=== PATIENT | male | born 1950 | race Caucasian/White ===

== ENCOUNTER 2020-06-25 12:50 | Outpatient (REF) | payer OTHER, SELFPAY ==
--- NOTE | 2020-06-25 16:22 | MHC.AU.P13 ---
Adult Audiological Evaluation Date of Visit: 06/25/20 Reason for Appointment: Audiological evaluation due to decreased hearing. Mr. Martínez reports difficulty hearing in most situations. He notes that he frequently asks for repetition. He feels his left ear may be worse than the right. Does patient feel they have a hearing loss?: Yes If Yes, Which Ear?: Both Ears When Was Hearing Difficulty First Noticed?: 5 years ago Has hearing been tested previously?: No Hearing Handicap Inventory: HHIE SCORE: 30 Based on HHIE score, patient has: Severe perceived hearing handicap Ear History: Bothersome Tinnitus/Ringing/Noises in Ears: Both ears, intermittent Blocked/Full Sensation in Ear(s): Both Ears Medical History: Medical History: Dizziness or Unsteadiness, Headache, Tobacco Use Otoscopy: Right Ear: Unremarkable Left Ear: Unremarkable Tympanometry: Right Ear: Could Not Obtain Seal Left Ear: Normal Middle Ear System (Type A) Hearing Evaluation: Transducer(s) Used: Insert Earphones, Bone Conduction Method: Conventional Audiometry Stimuli Used: Pure Tones Right Ear: Description of Hearing: Moderate to severe sensorineural hearing loss from 250-8000 Hz. Left Ear: Description of Hearing: Moderately severe to profound sensorineural hearing loss from 250-8000 Hz. Speech Recognition Threshold (SRT): Method Used: Monitored Live Voice Stimuli Used: Spondee Words Right Ear: 60 dBHL Left Ear: 65 dBHL Word Discrimination: Method: Recorded Lists Word Lists Used: NU-6 Right Ear: 84% at 90 dBHL Left Ear: 76% at 90 dBHL Recommendations: Recommendations: Audiological re-evaluation in one year. Trial with amplification is recommended. Medical clearance from a physician is required before fitting. Hearing Aid Fitting will be scheduled when all materials arrive. Diagnosis: Primary Diagnosis: H90.3 Bilateral Sensorineural Hearing Loss Services Performed: Services Performed: Comprehensive Audiological Evaluation (CPT 18576) Tympanometry (CPT 76547) Signature: Provider: Giles Arthur, CCC-A
--- NOTE | 2020-06-25 16:23 | MHC.AU.P13 ---
Hearing Aid Evaluation- Binaural Date of Visit: 06/25/20 Description of Hearing: Moderate to severe sensorineural hearing loss in the right ear. Moderately severe to profound sensorineural hearing loss in the left ear. Summary: Mr. Martínez reports that he has significant difficulties hearing in most situations. 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 He would benefit from rechargeable hearing aids as he wouldn't be able to change a battery independently. He is interested in ITE style aids. Hearing Instrument Selection: Right Ear: Software Support Engineer: Robin Model: Robin Virgil 1600 ITE-R Battery Size: Rechargeable Color: [place] Left Ear: Software Support Engineer: Phonak Model: Robin Virgil 1600 ITE-R Battery Size: Rechargeable Color: [place] Recommendations: Medical clearance for hearing aid use is being requested from Mr. Martínez's PCP. Once received, hearing aids will be ordered. Earmold impressions are in the hold drawer. Will call to scheduled EPPERSON Fitting once all materials are received. Diagnosis Code(s): Primary Diagnosis: H90.3 Bilateral Sensorineural Hearing Loss Signature: Provider: Giles Arthur, CCC-A
--- NOTE | 2020-06-25 16:29 | MHC.AU.MED ---
Medical Clearance for Hearing Instrumentation Date: 06/25/20 Patient Name: Gustavo Martínez Date of : 1950 Dear , We have seen your patient on 06/25/20 and have determined that they are a candidate for amplification (See accompanying report). Specifically, they would benefit from: Hearing aid use in both ears There is a statute that addresses Medical Evaluation Requirements prior to fitting a patient with a hearing aid. According to [place] statute 265 CMR:6.03(1), (a) General. Except as provided in 265 CMR 6.03(1)(b), a special investigator shall not sell a hearing aid unless the prospective user has presented to the special investigator a written statement signed by a licensed physician that states that the patient's hearing loss has been medically evaluated and the patient may be considered a candidate for a hearing aid. The medical evaluation must have taken place within the preceding six months. Please note: Due to the [place] Statute referenced above, we cannot accept a signature other than that of a licensed physician. CORPORATE LAW SPECIALIST and PA signatures cannot be accepted. I am in agreement with the above recommendation. There is no medical contraindication for hearing instrumentation. Physician Signature Date Physician Name (Printed)
== END 2020-06-25 12:51 | disposition home or self-care (01) ==
LOC: HO.SH 12:50
PROVIDERS: PCP Nurse Practitioner; Referring Provider Nurse Practitioner; Visit Provider Nurse Practitioner
DX: H90.3 Sensorineural hearing loss, bilateral (principal)
CPT/HCPCS: 92557; 92567; 92591; V5264; V5275

== ENCOUNTER 2020-08-04 12:22 | Outpatient (REF) | payer MEDICARE, SELFPAY | END 2020-08-04 12:23 | disposition home or self-care (01) | LOC: HO.HAP 12:22 | PROVIDERS: Visit Provider Nurse Practitioner | DX: Z46.1 Encounter for fitting and adjustment of hearing aid (principal); H90.3 Sensorineural hearing loss, bilateral | CPT/HCPCS: V5011; V5020; V5160; V5260 ==

== ENCOUNTER 2020-08-18 12:25 | Outpatient (REF) | payer MEDICARE, SELFPAY | END 2020-08-18 12:26 | disposition home or self-care (01) | LOC: HO.HAP 12:25 | PROVIDERS: Visit Provider Nurse Practitioner | DX: Z13.89 Encounter for screening for other disorder (principal) ==

== ENCOUNTER 2021-08-24 13:36 | Inpatient (IN) | payer MEDICARE, SELFPAY ==
--- NOTE | ~2021-08-24 | XR_ITS ---
EXAMINATION: XR CHEST CLINICAL INFORMATION: Cough and fevers. COMPARISON: None TECHNIQUE: Frontal view of the chest was obtained. FINDINGS: There is moderate dextroscoliosis. Slightly hyperexpanded right lung is noted. There is dense right apical opacity question pleural scarring. There is patchy reticular linear opacities in both lungs slightly greater in the left midlung question developing infiltrates. There is no large consolidation or pleural effusion. Heart size and perivascular is normal. There is a hardware in the lower lumbar spine. XR/XR chest 1V IMPRESSION: Radicular patchy opacities in both lungs slightly greater in the left midlung region suspicious for developing infiltrates. There is moderate right apical opacity likely apical scarring with underlying atelectasis. The right lung is hypoexpanded.
--- NOTE | ~2021-08-24 | CT_ITS ---
EXAMINATION: CT HEAD WITHOUT CONTRAST CLINICAL INFORMATION: Covid positive. AMS. COMPARISON: None TECHNIQUE: Contiguous axial imaging was performed from the skull base to vertex without intravenous administration of contrast. This CT examination was performed using dose optimization techniques as appropriate, variously including the following: *Automated exposure control *Adjustment of mA and/or kV according to patient size (this includes techniques or standardized protocols for targeted exams where dose is matched to indication/reason for exam; i.e. extremities or head) *Use of iterative reconstruction technique DLP: 695 mGy-cm FINDINGS: There is no evidence of acute intracranial hemorrhage or territorial infarction. No abnormal mass effect or midline shift is seen. Walker to white matter differentiation is well preserved. No extra-axial fluid collections are identified. The lateral ventricles are symmetrical in size but enlarged. There is diffuse periventricular hypodensity in both cerebral hemispheres without mass effect. The osseous structures and soft tissues are normal. The mastoid air cells and visualized portions of the paranasal sinuses are well aerated. CT/CT head/brain wo con IMPRESSION: No acute intracranial process seen. Age-related cerebral volume loss with chronic small vessel ischemic changes.
[2021-08-24 14:20] VITALS: BP 116/89; PULSE 90; RESP 20; TEMP 38.2; O2SAT 98; BMI 22.9
--- NOTE | 2021-08-24 14:20 | ECG_ITS ---
Test Reason : respitory distress Blood Pressure : / mmHG Vent. Rate : 094 BPM Atrial Rate : 094 BPM P-R Int : 192 ms QRS Dur : 144 ms QT Int : 386 ms P-R-T Axes : 059 015 099 degrees QTc Int : 482 ms Normal sinus rhythm Left bundle branch block Abnormal ECG No previous ECGs available Referred By: Alexandrea Mejia Electronically Signed By:Florin Roman
--- NOTE | 2021-08-24 14:23 | ED.WEAKNESS ---
HPI - Weakness General Chief complaint: Altered Mental Status Stated complaint: AMS/FTT/new onset weakness Time Seen by Provider: 08/24/21 14:16 Source: patient and EMS Mode of arrival: EMS Limitations: altered mental status (slightly confused) History of Present Illness HPI Narrative: Jose Luis x 3 per his reports confused at home and incontinent at home which is not his baseline - unknown when last well was EMS initially tried to call for high risk refusal but then noted patient was confused which is not his baseline MD Complaint: generalized weakness (cough) and lack of energy Onset (ago): day(s) (2) Duration: constant Location: generalized Migration: none Severity: moderate Quality: dull Relieving factors: none Exacerbating factors: exertion Context: other (very hard to get history from, refused transport initially but confused, febrile + cough, possible COVID exposure) Associated symptoms: fever/chills and loss of appetite Related Data Home Medications Medication Instructions Recorded Confirmed albuterol sulfate 2.5 mg INHALATION QID PRN 08/24/21 albuterol sulfate 90 mcg/actuation 90 mcg INHALATION Q4H 08/24/21 aerosol inhaler aspirin 81 mg tablet,delayed 1 tab PO DAILY 08/24/21 release atorvastatin 80 mg tablet 1 tab PO DAILY 08/24/21 clonazepam 0.5 mg tablet 1 tab PO TID PRN 08/24/21 famotidine 40 mg tablet 1 tab PO DAILY 08/24/21 finasteride 5 mg tablet 1 tab PO DAILY 08/24/21 fluticasone fur. 100 mcg-umeclid 1 puff INHALATION DAILY 08/24/21 62.5 mcg-vilant 25 mcg inhalat.powder (Trelegy Ellipta) folic acid 1 mg tablet 1 tab PO DAILY 08/24/21 multivitamin 1 tab PO DAILY 08/24/21 ondansetron HCl 4 mg tablet 1 tab PO Q8H PRN 08/24/21 oxycodone 10 mg tablet,crush mg PO BEDTIME 08/24/21 resistant,extended release 12 hr (OxyContin) oxycodone 40 mg tablet,crush 1 tab PO BID 08/24/21 resistant,extended release 12 hr (OxyContin) quetiapine 100 mg tablet 1 tab PO BEDTIME 08/24/21 sennosides 8.6 mg-docusate sodium PO 08/24/21 50 mg tablet (Stimulant Laxative Plus) sertraline 100 mg tablet 1 tab PO DAILY 08/24/21 Allergies Allergy/AdvReac Type Severity Reaction Status Date / Time hydromorphone [From Dilaudid] Allergy Intermediate hallucinati Verified 08/24/21 14:18 on Review of Systems Review of Systems: Constitutional : No Fever, pos Chills, pos malaise ENT/Mouth : No sore throat, No Rhinorrhea, No Swallowing Difficulty Eyes: No Eye Pain, No Swelling, No Redness Cardiovascular : No Chest Pain, positive SOB, No Orthopnea, noEdema Respiratory : pos Cough, No Sputum, No Wheezing, positive dyspnea Gastrointestinal : No Nausea, No Vomiting, No Diarrhea, No abdominal Pain, No Hematochezia, No Melena Genitourinary : No Dysuria, No Urinary Frequency, No Hematuria Musculoskeletal : No joint pain, No Myalgias Skin : No Skin Lesions, No rash Neuro : pos Weakness, No Numbness, No Dizziness, No Headache Psych : No Anxiety/Panic, No Depression Heme/Lymph: No Bruising, No Lymphadenopathy Endocrine : No Polyuria, No Polydipsia All other systems reviewed and are negative [facility] Past Medical History Medical History (Updated 08/24/21 @ 18:00 by Sherrell Torres MD) Arthritis Bronchiectasis COPD (chronic obstructive pulmonary disease) Coronary artery disease Depression GERD (gastroesophageal reflux disease) Hypertension Left bundle branch block Pulmonary fibrosis Social History Social History Patient Tobacco Use Status: Former Tobacco user Advance Directives: No Physical Exam Vital Signs: Vital Signs: Last Vital Signs Temp 98.5 F 08/24/21 15:58 Pulse 94 08/24/21 15:58 Resp 14 08/24/21 15:58 BP 121/67 08/24/21 15:58 Pulse Ox 96 08/24/21 15:58 Oxygen Flow Rate 3 08/24/21 14:20 BMI result Body Mass Index 22.9 Appearance: Alert. Oriented X2 (knows time and person but then varies) No acute distress. Eyes: Pupils equal, round and reactive to light. ENT: Pharynx normal. Neck: Normal inspection. Neck supple. CVS: Normal heart rate and rhythm. Pulses normal. Respiratory: No respiratory distress. Breath sounds diminished throughout Abdomen: Soft and nontender. Skin: Skin warm and dry. Normal skin color. Normal skin turgor. Extremities: No lower extremity edema. No calf ttp Neuro: Oriented X 2 - fluctuates. No motor deficit. No sensory deficit. Course Course Course Narrative: given fevers and encephalopathy will admit for further management MDM - Weakness MDM Narrative Medical decision making narrative: 71 yo male with hx of COPD on 3L NC sent in by visiting RN for confusion and weaknesss - patient cannot tell me much and initially refused EMS transport at this time he is found to be febrile in ED at this time labs, cultures, lactic acid, COVID swab, UA and CXR given cough at this time will start on empiric Ceftriaxone. Anticipate admission at this time given fevers and confusion. Lab Data Result diagrams: 08/24/21 14:40 08/24/21 14:37 Labs: Lab Results 08/24/21 08/24/21 08/24/21 Range/Units 14:37 14:37 14:37 WBC (4.8-10.8) X10*3/uL RBC (4.60-5.80) X10*6/uL Hgb (14.0-18.0) g/dl Hct (42.0-52.0) % MCV (80.0-98.0) fL MCH (27.0-33.0) pg MCHC (31.0-36.0) g/dl RDW (11.0-16.0) % Plt Count (160-400) X10*3/uL MPV (9.4-12.4) fL Immature Gran % (Auto) (0.0-0.4) % Neut % (Auto) (45-73) % Lymph % (Auto) (20-40) % [place] % (Auto) (2-11) % Eos % (Auto) (0-4) % Baso % (Auto) (0-2) % Lymph # (Auto) (1.2-4.9) X10*3/uL [place] # (Auto) (0.1-1.2) X10*3/uL Eos # (Auto) (0.0-0.4) X10*3/uL Baso # (Auto) (0.0-0.2) X10*3/uL Abs Immat Gran (auto) (0.00-0.03) X10*3/uL Absolute Neuts (auto) (2.0-8.3) x10*3/uL Absolute Nucleated RBC (0.0-0.012) X10*3/uL Nucleated RBC % (auto) (0.0-0.2) /100WBC PT (9.9-13.0) SEC INR (0.9-1.1) APTT (24.1-38.0) SEC D-Dimer High Sensitivty NG/ML Sodium 138 (135-145) mmol/L Potassium 3.8 (3.3-5.1) mmol/L Chloride 100 (96-108) mmol/L Carbon Dioxide 32 H (22-29) mmol/L Anion Gap 10 L (12-20) BUN 14 (9-16) mg/dL Creatinine 1.08 (0.5-1.4) mg/dL Estim Creat Clear Calc TNP Estimated GFR > 60 Random Glucose 129 H (60-115) mg/dL Lactic Acid 0.8 (0.5-2.0) mmol/L Calcium 8.8 (8.4-10.2) mg/dL Magnesium 2.0 (1.6-2.6) mg/dL Ferritin 160 (20-250) ng/mL Total Bilirubin 0.6 (0.0-1.0) mg/dL Direct Bilirubin 0.3 (0.0-0.5) mg/dL AST 23 (5-37) U/L ALT 18 (0-40) U/L Alkaline Phosphatase 58 (39-117) U/L Lactate Dehydrogenase 269 (118-273) U/L Total Creatine Kinase 100 (38-174) U/L Troponin I High Sens 14.9 (<3.5-35.0) ng/L C-Reactive Protein 8.26 H (< or = 0.50) mg/dL Total Protein 6.3 L (6.5-8.0) g/dL Albumin 3.3 L (3.5-5.0) g/dL Procalcitonin ng/mL COVID-19 ([facility]) (Negative) COVID-19 Clin Com 08/24/21 08/24/21 08/24/21 Range/Units 14:37 14:38 14:39 WBC (4.8-10.8) X10*3/uL RBC (4.60-5.80) X10*6/uL Hgb (14.0-18.0) g/dl Hct (42.0-52.0) % MCV (80.0-98.0) fL MCH (27.0-33.0) pg MCHC (31.0-36.0) g/dl RDW (11.0-16.0) % Plt Count (160-400) X10*3/uL MPV (9.4-12.4) fL Immature Gran % (Auto) (0.0-0.4) % Neut % (Auto) (45-73) % Lymph % (Auto) (20-40) % [place] % (Auto) (2-11) % Eos % (Auto) (0-4) % Baso % (Auto) (0-2) % Lymph # (Auto) (1.2-4.9) X10*3/uL [place] # (Auto) (0.1-1.2) X10*3/uL Eos # (Auto) (0.0-0.4) X10*3/uL Baso # (Auto) (0.0-0.2) X10*3/uL Abs Immat Gran (auto) (0.00-0.03) X10*3/uL Absolute Neuts (auto) (2.0-8.3) x10*3/uL Absolute Nucleated RBC (0.0-0.012) X10*3/uL Nucleated RBC % (auto) (0.0-0.2) /100WBC PT 11.5 (9.9-13.0) SEC INR 1.0 (0.9-1.1) APTT 34.1 (24.1-38.0) SEC D-Dimer High Sensitivty 282 NG/ML Sodium (135-145) mmol/L Potassium (3.3-5.1) mmol/L Chloride (96-108) mmol/L Carbon Dioxide (22-29) mmol/L Anion Gap (12-20) BUN (9-16) mg/dL Creatinine (0.5-1.4) mg/dL Estim Creat Clear Calc Estimated GFR Random Glucose (60-115) mg/dL Lactic Acid (0.5-2.0) mmol/L Calcium (8.4-10.2) mg/dL Magnesium (1.6-2.6) mg/dL Ferritin (20-250) ng/mL Total Bilirubin (0.0-1.0) mg/dL Direct Bilirubin (0.0-0.5) mg/dL AST (5-37) U/L ALT (0-40) U/L Alkaline Phosphatase (39-117) U/L Lactate Dehydrogenase (118-273) U/L Total Creatine Kinase (38-174) U/L Troponin I High Sens (<3.5-35.0) ng/L C-Reactive Protein (< or = 0.50) mg/dL Total Protein (6.5-8.0) g/dL Albumin (3.5-5.0) g/dL Procalcitonin 0.12 ng/mL COVID-19 ([facility]) Positive A (Negative) COVID-19 Clin Com See Note 08/24/21 Range/Units 14:40 WBC 6.2 (4.8-10.8) X10*3/uL RBC 3.89 L (4.60-5.80) X10*6/uL Hgb 11.3 L (14.0-18.0) g/dl Hct 35.9 L (42.0-52.0) % MCV 92.3 (80.0-98.0) fL MCH 29.0 (27.0-33.0) pg MCHC 31.5 (31.0-36.0) g/dl RDW 17.0 H (11.0-16.0) % Plt Count 190 (160-400) X10*3/uL MPV 10.0 (9.4-12.4) fL Immature Gran % (Auto) 0.3 (0.0-0.4) % Neut % (Auto) 85.3 H (45-73) % Lymph % (Auto) 3.9 L (20-40) % [place] % (Auto) 9.8 (2-11) % Eos % (Auto) 0.5 (0-4) % Baso % (Auto) 0.2 (0-2) % Lymph # (Auto) 0.2 L (1.2-4.9) X10*3/uL [place] # (Auto) 0.6 (0.1-1.2) X10*3/uL Eos # (Auto) 0.0 (0.0-0.4) X10*3/uL Baso # (Auto) 0.0 (0.0-0.2) X10*3/uL Abs Immat Gran (auto) 0.02 (0.00-0.03) X10*3/uL Absolute Neuts (auto) 5.3 (2.0-8.3) x10*3/uL Absolute Nucleated RBC 0.000 (0.0-0.012) X10*3/uL Nucleated RBC % (auto) 0.0 (0.0-0.2) /100WBC PT (9.9-13.0) SEC INR (0.9-1.1) APTT (24.1-38.0) SEC D-Dimer High Sensitivty NG/ML Sodium (135-145) mmol/L Potassium (3.3-5.1) mmol/L Chloride (96-108) mmol/L Carbon Dioxide (22-29) mmol/L Anion Gap (12-20) BUN (9-16) mg/dL Creatinine (0.5-1.4) mg/dL Estim Creat Clear Calc Estimated GFR Random Glucose (60-115) mg/dL Lactic Acid (0.5-2.0) mmol/L Calcium (8.4-10.2) mg/dL Magnesium (1.6-2.6) mg/dL Ferritin (20-250) ng/mL Total Bilirubin (0.0-1.0) mg/dL Direct Bilirubin (0.0-0.5) mg/dL AST (5-37) U/L ALT (0-40) U/L Alkaline Phosphatase (39-117) U/L Lactate Dehydrogenase (118-273) U/L Total Creatine Kinase (38-174) U/L Troponin I High Sens (<3.5-35.0) ng/L C-Reactive Protein (< or = 0.50) mg/dL Total Protein (6.5-8.0) g/dL Albumin (3.5-5.0) g/dL Procalcitonin ng/mL COVID-19 ([facility]) (Negative) COVID-19 Clin Com ECG Data Attestation: I personally reviewed and interpreted this ECG as follows: ECG interpretation date: 08/24/21 ECG interpretation time: 14:49 Interpretation: Rate: 94 Rhythm: NSR [place]: left Normal P waves. Normal ABRAHAM. LBBB ST T wave : tall T waves anterior leads but no SYEDA qTC: normal prior studies: none, sig artifact noted The study has been interpreted contemporaneously by me. . Discharge Plan Discharge Clinical Impression: COVID-19, Encephalopathy acute, Pneumonia due to 2019-nCoV Fever Qualifiers: Fever type: unspecified Qualified Code(s): R50.9 - Fever, unspecified Patient Disposition: Admitted As Inpatient
[2021-08-24 14:41] VITALS: BP 116/68; PULSE 101; RESP 20; TEMP 37.7; O2SAT 96
[2021-08-24 14:50] LABS: MANUAL DIFF FLAG NO
[2021-08-24 14:51] LABS: Basophils Percent Auto 0.2 % (0-2); Eosinophils Percent Auto 0.5 % (0-4); Hematocrit 35.9 % (42.0-52.0); Hemoglobin 11.3 g/dl (14.0-18.0); Imm Gran Abs Auto 0.02 X10*3/uL (0.00-0.03); Imm Gran Pct Auto 0.3 % (0.0-0.4); Lymphocytes Absolute Auto 0.2 X10*3/uL (1.2-4.9); Lymphocytes Percent Auto 3.9 % (20-40); Mean Corpuscular HGB Conc 31.5 g/dl (31.0-36.0); Mean Corpuscular Volume 92.3 fL (80.0-98.0); Monocytes Absolute Auto 0.6 X10*3/uL (0.1-1.2); Monocytes Percent Auto 9.8 % (2-11); Neutrophils Absolute Auto 5.3 x10*3/uL (2.0-8.3); Neutrophils Percent Auto 85.3 % (45-73); Platelet Count 190 X10*3/uL (160-400); Red Blood Count 3.89 X10*6/uL (4.60-5.80); White Blood Count 6.2 X10*3/uL (4.8-10.8)
[2021-08-24 14:56] LABS: Prothrombin Time 11.5 SEC (9.9-13.0)
[2021-08-24 14:59] LABS: Partial Thromboplastin Time 34.1 SEC (24.1-38.0)
[2021-08-24 14:59] LABS: Lactic Acid 0.8 mmol/L (0.5-2.0)
[2021-08-24 15:02] LABS: COVID-19 Test Positive (Negative)
[2021-08-24 15:06] LABS: Alanine Aminotransferase 18 U/L (0-40); Albumin Level 3.3 g/dL (3.5-5.0); Alkaline Phosphatase 58 U/L (39-117); Anion Gap 10 (12-20); Aspartate Amino Transferase 23 U/L (5-37); Bilirubin Direct 0.3 mg/dL (0.0-0.5); Bilirubin Total 0.6 mg/dL (0.0-1.0); Blood Urea Nitrogen 14 mg/dL (9-16); C Reactive Protein 8.26 mg/dL (< or = 0.50); Calcium 8.8 mg/dL (8.4-10.2); Carbon Dioxide 32 mmol/L (22-29); Chloride 100 mmol/L (96-108); Estimated Glomerular Filt Rate > 60; Glucose Random 129 mg/dL (60-115); Potassium 3.8 mmol/L (3.3-5.1); Sodium 138 mmol/L (135-145); Total Protein 6.3 g/dL (6.5-8.0)
[2021-08-24 15:14] LABS: Lactate Dehydrogenase 269 U/L (118-273)
[2021-08-24] MEDS: Acetaminophen 325 MG TABLET 650 MG PO (15:16)
[2021-08-24 15:18] LABS: Troponin-I High Sensitivity 14.9 ng/L (<3.5-35.0)
[2021-08-24] MEDS: cefTRIAXone sodium 1 GM in 0.9 % Sodium Chloride 50 ML IV (15:18)
[2021-08-24] MEDS: 0.9 % Sodium Chloride 500 ML IV (15:18)
[2021-08-24 15:22] LABS: D Dimer High Sensitivity 282 NG/ML
[2021-08-24 15:25] LABS: Ferritin 160 ng/mL (20-250)
[2021-08-24 15:58] VITALS: BP 121/67; PULSE 94; RESP 14; TEMP 36.9; O2SAT 96
--- NOTE | 2021-08-24 17:21 | PM.IMHP ---
History of Present Illness Date of Service: 08/24/21 Chief Complaint: fever/confusion 71yo M with COPD, bronchiectasis, and pulmonary fibrosis, on home O2 3L via NC. He is a poor historian. History is per the ED physician as well as my telephone conversation with his VNA Yennifer, whose phone number is [phone]. The patient's HCP, his [id number] Mady, no longer wants anything to do with him, and her alternate, his brother Ladarius, has a number that does not work. Per Yennifer the patient is estranged from his family. He relates that he lives with his REED POLISHER but he actually lives alone and his REED POLISHER comes 5 days a week. He has a chronic purulent cough and has been on steroids since February, with a gradual taper as per his progressive care unit registered nurse, Dr Mariajose Chowdhury, at [facility]. He was exposed to Covid-19 through his REED POLISHER, who give him a ride, 6 days ago. His VNA called 911 as the patient was confused and incontinent of urine, which is not his baseline. He initially refused transport and has a history of trying to sign out AMA from the hospital. He tells me that he has been coughing and endorses dyspnea and wheeze. He states this has been going on for 8 days, but as note above, he has a chronic cough. He is oriented to self and place but not to date. He does relate that he had 2 doses of a Covid vaccine plus a booster of the same. In the ED, he was noted to have fever to 100.7 and disoriented. CXR showed patchy R>L mid-lung infiltrates. He was given 1 dose of IV ceftriaxone. CT head is pending. Covid-19 PRIYA positive. Review of Systems Review of Systems: Yes all other systems are reviewed and are negative [facility] Medical History (Updated 08/24/21 @ 18:00 by Sherrell Torres MD) Arthritis Bronchiectasis COPD (chronic obstructive pulmonary disease) Coronary artery disease Depression GERD (gastroesophageal reflux disease) Hypertension Left bundle branch block Pulmonary fibrosis Pertinent family history: CAD, breast CA, prostate CA Social History Patient Tobacco Use Status: Former Tobacco user Advance Directives: No Narrative: lives alone ex-smoker Meds Allergies Allergy/AdvReac Type Severity Reaction Status Date / Time hydromorphone [From Dilaudid] Allergy Intermediate hallucinati Verified 08/24/21 14:18 on Active Medications: Current Medications Acetaminophen (Acetaminophen 325 Mg Tablet) 650 mg PO Q6H PRN PRN Reason: Pain, Mild (Pain Scale 1-3) Albuterol Sulfate (Albuterol Sulfate 90 Mcg 8 Gm Inhaler) 4 puff INHALE Q2H PRN PRN Reason: shortness of breath/wheeze Enoxaparin Sodium (Enoxaparin Sodium 40 Mg/0.4 Ml Syringe) 40 mg SUBCUT Q24H STELLA Fluticasone/Vilanterol (Fluticasone/Vilanterol 100/25 Blst.W.Dev) 1 puff INHALE RDAILY [facility] Doxycycline Hyclate 100 mg/ (Sodium Chloride) 250 mls @ 166.67 mls/hr IV Q12H [facility] Methylprednisolone Sodium Succinate (Methylprednisolone Sod Succ 40 Mg/Ml Vial) 40 mg IVPUSH Q12H [facility]LL[facility] Ondansetron HCl (Ondansetron Hcl 4 Mg/2 Ml Vial) 4 mg IVPUSH Q8H PRN PRN Reason: Nausea and Vomiting Pharmacy Consult (Consult Rx Perform Med Rec) 1 each MISCELLANE ONCE PRN PRN Reason: Consult order Pharmacy Consult (Consult Rx Perform Med Rec) 1 each MISCELLANE ONCE STA Stop: 08/24/21 16:47 Sodium Chloride (0.9 % Sodium Chloride Flush 3 Ml Syringe) 3 ml IVFLUSH QSHIFT [facility] Tiotropium [place] (Tiotropium [place] 18 Mcg Cap.W.Dev) 1 puff INHALE RDAILY [facility] Home Medications Medication Instructions Recorded Confirmed Last Taken Type albuterol sulfate 2.5 mg INHALATION QID PRN 08/24/21 08/24/21 Unknown History albuterol sulfate 90 mcg/actuation 90 mcg INHALATION Q4H 08/24/21 08/24/21 Unknown History aerosol inhaler aspirin 81 mg tablet,delayed 1 tab PO DAILY 08/24/21 08/24/21 Unknown History release atorvastatin 80 mg tablet 1 tab PO DAILY 08/24/21 08/24/21 Unknown History cholecalciferol (vitamin D3) 25 25 mcg PO DAILY 08/24/21 08/24/21 Unknown History mcg (1,000 unit) tablet clonazepam 0.5 mg tablet 1 tab PO TID PRN 08/24/21 08/24/21 Unknown History famotidine 40 mg tablet 1 tab PO DAILY 08/24/21 08/24/21 Unknown History finasteride 5 mg tablet 1 tab PO DAILY 08/24/21 08/24/21 Unknown History fluticasone fur. 100 mcg-umeclid 1 puff INHALATION DAILY 08/24/21 08/24/21 Unknown History 62.5 mcg-vilant 25 mcg inhalat.powder (Trelegy Ellipta) folic acid 1 mg tablet 1 tab PO DAILY 08/24/21 08/24/21 Unknown History multivitamin 1 tab PO DAILY 08/24/21 08/24/21 Unknown History ondansetron HCl 4 mg tablet 1 tab PO Q8H PRN 08/24/21 08/24/21 Unknown History oxycodone 10 mg tablet,crush 10 mg PO DAILY 08/24/21 08/24/21 Unknown History resistant,extended release 12 hr (OxyContin) oxycodone 40 mg tablet,crush 1 tab PO BID 08/24/21 08/24/21 Unknown History resistant,extended release 12 hr (OxyContin) prednisone 5 mg tablet 5 mg PO Q2D 08/24/21 08/24/21 Unknown History prednisone 5 mg tablet 10 mg PO Q2D 08/24/21 08/24/21 Unknown History quetiapine 100 mg tablet 1 tab PO BEDTIME 08/24/21 08/24/21 Unknown History sennosides 8.6 mg-docusate sodium 1 tab PO DAILY 08/24/21 08/24/21 Unknown History 50 mg tablet (Stimulant Laxative Plus) sertraline 100 mg tablet 1 tab PO DAILY 08/24/21 08/24/21 Unknown History trazodone 100 mg tablet 2 tab PO BEDTIME PRN 08/24/21 08/24/21 Unknown History Physical Exam Vital Signs and Narrative: Vital Signs: Last Vital Signs Temp 98.5 F 08/24/21 15:58 Pulse 94 08/24/21 15:58 Resp 14 08/24/21 15:58 BP 121/67 08/24/21 15:58 Pulse Ox 96 08/24/21 15:58 Oxygen Flow Rate 3 08/24/21 14:20 BMI result Body Mass Index 22.9 Gen: in no acute distress HEENT: sclera anicteric, moist mucus membranes Neck: supple Lungs: bilateral inspiratory crackles and expiratory wheezing Heart: regular rate and rhythm, no murmurs Abd: soft, non-tender, non-distended Ext: no edema Skin: warm/well-perfused Neuro: alert and oriented to self and place but not time, no focal findings Psych: appropriate affect Results Labs CBC and Chem 7: 08/24/21 14:40 08/24/21 14:37 Labs: Laboratory Results - last 24 hr 08/24/21 08/24/21 08/24/21 14:37 14:37 14:37 MCV MCH MCHC RDW Plt Count MPV Immature Gran % (Auto) Neut % (Auto) Lymph % (Auto) [place] % (Auto) Eos % (Auto) Baso % (Auto) Lymph # (Auto) [place] # (Auto) Eos # (Auto) Baso # (Auto) Abs Immat Gran (auto) Absolute Neuts (auto) Absolute Nucleated RBC Nucleated RBC % (auto) PT INR APTT D-Dimer High Sensitivty Anion Gap 10 L Estim Creat Clear Calc TNP Estimated GFR > 60 Random Glucose 129 H Lactic Acid 0.8 Calcium 8.8 Magnesium 2.0 Ferritin 160 Total Bilirubin 0.6 Direct Bilirubin 0.3 AST 23 ALT 18 Alkaline Phosphatase 58 Lactate Dehydrogenase 269 Total Creatine Kinase 100 Troponin I High Sens 14.9 C-Reactive Protein 8.26 H Total Protein 6.3 L Albumin 3.3 L COVID-19 (PRIYA) COVID-19 Clin Com 08/24/21 08/24/21 08/24/21 14:38 14:39 14:40 MCV 92.3 MCH 29.0 MCHC 31.5 RDW 17.0 H Plt Count 190 MPV 10.0 Immature Gran % (Auto) 0.3 Neut % (Auto) 85.3 H Lymph % (Auto) 3.9 L [place] % (Auto) 9.8 Eos % (Auto) 0.5 Baso % (Auto) 0.2 Lymph # (Auto) 0.2 L [place] # (Auto) 0.6 Eos # (Auto) 0.0 Baso # (Auto) 0.0 Abs Immat Gran (auto) 0.02 Absolute Neuts (auto) 5.3 Absolute Nucleated RBC 0.000 Nucleated RBC % (auto) 0.0 PT 11.5 INR 1.0 APTT 34.1 D-Dimer High Sensitivty 282 Anion Gap Estim Creat Clear Calc Estimated GFR Random Glucose Lactic Acid Calcium Magnesium Ferritin Total Bilirubin Direct Bilirubin AST ALT Alkaline Phosphatase Lactate Dehydrogenase Total Creatine Kinase Troponin I High Sens C-Reactive Protein Total Protein Albumin COVID-19 (PRIYA) Positive A COVID-19 Clin Com See Note Imaging Radiologist's Impressions: Impressions Chest X-Ray 08/24/21 15:05 IMPRESSION: Radicular patchy opacities in both lungs slightly greater in the left midlung region suspicious for developing infiltrates. There is moderate right apical opacity likely apical scarring with underlying atelectasis. The right lung is hypoexpanded. Assessment and Plan (1) COVID-19: Status: Acute (2) COPD exacerbation: Status: Acute 71yo M with advanced COPD and bronchiectasis and pulmonary brisosi on home O2 presenting after 8 days of cough and fever, noted to be confused, testing positive for Covid-19 but not hypoxic # breakthrough Covid-19 PNA - admit to isolation/IMC for encephalopathy + COPD exacerbation, trend inflammatory markers. given high risk of progression and that he is likely in the 1st 7 days of illness, will start remdesivir. # COPD exacerbation - IV methlyprednisolone, doxycycline, standing/prn nebs, continue home triple therapy ICS/LABA/LAMA # encephalopathy - likely due to above; monitor mental status as these conditions are treated # chronic hypoxic respiratory failure - baseline 3L O2 via NC, goal SaO2 88-92%. per his VNA he is usually around 90% at rest, 85% with exertion # CAD - continue ASA + statin # chronic pain - continue oxycodone # depression/mood - continue quetiapine, clonazepam, sertraline # prostatism - continue finasteride # VTE ppx - LMWH # code - Full Quality Stroke Does the patient have a stroke diagnosis?: No VTE Prior VTE?: No VTE Risk Level:: Medical - moderate - high VTE Device Contraindication: N/A - Device Ordered VTE Drug Contraindication: N/A - Med Ordered
[2021-08-24 17:25] LABS: Procalcitonin 0.12 ng/mL
--- NOTE | 2021-08-24 18:15 | PHA.MEDREC ---
Pharmacy Consult ? Medication Reconciliation Pharmacy has completed the medication reconciliation. Patient doesnt know med used list provided by visiting nurses
[2021-08-24] MEDS: Enoxaparin Sodium 40 MG/0.4 ML SYRINGE SUBCUT (18:25)
[2021-08-24] MEDS: methylPREDNISolone Sod Succ 40 MG/ML VIAL IVPUSH (18:25)
[2021-08-24] MEDS: Doxycycline Hyclate 100 MG in 0.9 % Sodium Chloride 250 ML 166.67 MG IV (18:26)
[2021-08-24] MEDS: Remdesivir 200 MG in 0.9 % Sodium Chloride 210 ML 105 MG IV (20:01)
[2021-08-24 21:31] VITALS: BP 116/76; PULSE 81; RESP 14; O2SAT 96
[2021-08-24] MEDS: QUEtiapine Fumarate 100 MG TABLET PO (21:34)
[2021-08-24] MEDS: oxyCODONE HCl ER 40 MG TAB.ER.12H PO (21:34)
[2021-08-24 22:58] LABS: Appearance Urine CLEAR; Color Urine YELLOW; Glucose Urine UA NEG (NEG); Leukocyte Esterase Urine NEG (NEG); Nitrite Urine NEG (NEG); PH 5.5 (5.0-8.0); Specific Gravity - Urine <= 1.005 (1.005-1.025); Urine Blood NEG (NEG); Urine Ketones NEG (NEG); Urine Protein NEG (NEG-TRACE)
[2021-08-24 23:57] VITALS: BP 119/71; PULSE 75; RESP 14; TEMP 36.6; O2SAT 100
[2021-08-25] MEDS: 0.9 % Sodium Chloride Flush 3 ML SYRINGE IVFLUSH ×2 (00:54→18:07)
[2021-08-25 02:19] VITALS: BP 145/74; PULSE 87; RESP 16; TEMP 36.5; O2SAT 97
[2021-08-25 04:09] VITALS: BP 122/70; PULSE 74; RESP 19; TEMP 36.6; O2SAT 97
[2021-08-25] MEDS: methylPREDNISolone Sod Succ 40 MG/ML VIAL IVPUSH ×2 (06:50→18:06)
[2021-08-25] MEDS: Doxycycline Hyclate 100 MG in 0.9 % Sodium Chloride 250 ML 166.67 MG IV ×2 (06:50→18:07)
[2021-08-25 07:04] VITALS: BP 143/86; PULSE 76; RESP 13; TEMP 36.6; O2SAT 99
[2021-08-25 07:16] LABS: Hematocrit 34.7 % (42.0-52.0); Hemoglobin 10.9 g/dl (14.0-18.0); Mean Corpuscular HGB Conc 31.4 g/dl (31.0-36.0); Mean Corpuscular Hemoglobin 29.2 pg (27.0-33.0); Mean Platelet Volume 10.5 fL (9.4-12.4); Platelet Count 203 X10*3/uL (160-400); Red Blood Count 3.73 X10*6/uL (4.60-5.80); Red Cell Distribution Width 16.5 % (11.0-16.0); White Blood Count 3.4 X10*3/uL (4.8-10.8)
[2021-08-25 07:40] LABS: Alanine Aminotransferase 17 U/L (0-40); Albumin Level 3.1 g/dL (3.5-5.0); Alkaline Phosphatase 51 U/L (39-117); Anion Gap 11 (12-20); Aspartate Amino Transferase 23 U/L (5-37); Bilirubin Total 0.4 mg/dL (0.0-1.0); Blood Urea Nitrogen 14 mg/dL (9-16); Calcium 8.4 mg/dL (8.4-10.2); Carbon Dioxide 32 mmol/L (22-29); Chloride 99 mmol/L (96-108); Creatinine Clr Calc Pharmacy 82.5; Estimated Glomerular Filt Rate > 60; Glucose Random 124 mg/dL (60-115); Potassium 4.4 mmol/L (3.3-5.1); Sodium 138 mmol/L (135-145)
[2021-08-25] MEDS: Aspirin Enteric Coated 81 MG TABLET.DR PO (07:48)
[2021-08-25] MEDS: Sennosides/Docusate Sodium TABLET 1 TAB PO (07:48)
[2021-08-25] MEDS: Cholecalciferol (Vitamin D3) 25 MCG TABLET PO (07:49)
[2021-08-25] MEDS: Sertraline HCL 100 MG TABLET PO (07:49)
[2021-08-25] MEDS: Folic Acid 1 MG TABLET PO (07:49)
[2021-08-25] MEDS: oxyCODONE HCl ER 40 MG TAB.ER.12H PO ×2 (07:49→21:35)
[2021-08-25] MEDS: Famotidine 20 MG TABLET 40 MG PO (07:49)
[2021-08-25] MEDS: oxyCODONE HCl ER 10 MG TAB.ER.12H PO (07:49)
[2021-08-25] MEDS: Atorvastatin Calcium 80 MG TABLET PO (07:49)
[2021-08-25] MEDS: Multivitamin TABLET 1 TAB PO (07:50)
--- NOTE | 2021-08-25 09:07 | MHC.CM.PN ---
CM SPOKE WITH PT VIA T/C ([phone]) DUE TO PTS COVID POSITIVE STATUS PT REPORTS HE DOES LIVE ALONE HOWEVER HE IS NEVER BY HIMSELF OTHER THAN WHEN HE GOES TO BED. HE REPORTS HE HAS A FILLER IN THAT COMES IN 5 DAYS A WEEK, A VISITING NURSE TWICE DAILY FOR MEDS, SEVERAL FRIENDS THAT COME BY, AND IS ALSO VISITED BY OFFICER JIGNA GALLAGHER FROM [facility] ABOUT EVERY OTHER DAY. PT DOES NOT KNOW THE NAME OF HIS PCP BUT REPORTS HE GOES TO [facility] IN [place]. PT HAS A HCP ON FILE. IMM DELIVERED VIA T/C, PT IS AWARE THE ORIGINAL WILL BE MAILED TO HIS HOME, AND A COPY WAS SENT TO [facility]. CURRENT DC PLAN IS HOME WITH RESUMPTION OF FILLER IN SERVICES AND [facility] FOR MEDICATION ADMINISTRATION AND MENTAL HEALTH SERVICES PT WILL REQUIRE BLS TRANSPORT AT [place].
--- NOTE | 2021-08-25 13:30 | HO.PM.IMPN ---
Subjective Subjective Date of Service: 08/25/21 Interval History: Dyspnea + wheeze improved Review of Systems Review of Systems: Yes all other systems are reviewed and are negative Physical Exam Vital Signs: Vital Signs: Last Vital Signs Temp 97.8 F 08/25/21 07:04 Pulse 76 08/25/21 07:04 Resp 13 08/25/21 07:04 BP 143/86 H 08/25/21 07:04 Pulse Ox 99 08/25/21 07:04 Oxygen Flow Rate 3 08/24/21 14:20 BMI result Body Mass Index 22.9 Gen: in no acute distress HEENT: sclera anicteric, moist mucus membranes Neck: supple Lungs: bilateral inspiratory crackles and expiratory wheezing Heart: regular rate and rhythm, no murmurs Abd: soft, non-tender, non-distended Ext: no edema Skin: warm/well-perfused Neuro: fully oriented, no focal findings Psych: appropriate affect Objective Data Active Medications Acetaminophen (Acetaminophen 325 Mg Tablet) 650 mg PO Q6H PRN PRN Reason: Pain, Mild (Pain Scale 1-3) Albuterol Sulfate (Albuterol Sulfate 90 Mcg 8 Gm Inhaler) 4 puff INHALE Q2H PRN PRN Reason: shortness of breath/wheeze Aspirin (Aspirin Enteric Coated 81 Mg Tablet.) 81 mg PO DAILY [facility] Last Admin: 08/25/21 07:48 Dose: 81 mg Documented by: CHING Atorvastatin Calcium (Atorvastatin Calcium 80 Mg Tablet) 80 mg PO DAILY [facility] Last Admin: 08/25/21 07:49 Dose: 80 mg Documented by: CHING Clonazepam (Clonazepam 0.5 Mg Tablet) 0.5 mg PO TID PRN PRN Reason: Anxiety Enoxaparin Sodium (Enoxaparin Sodium 40 Mg/0.4 Ml Syringe) 40 mg SUBCUT Q24H [facility] Last Admin: 08/24/21 18:25 Dose: 40 mg Documented by: GUSTABO Famotidine (Famotidine 20 Mg Tablet) 40 mg PO DAILY [facility] Last Admin: 08/25/21 07:49 Dose: 40 mg Documented by: CHING Finasteride (Finasteride 5 Mg Tablet) 5 mg PO DAILY [facility] Last Admin: 08/25/21 07:50 Dose: Not Given Documented by: CHING Non-Admin Reason: Med Not Available Fluticasone/Vilanterol (Fluticasone/Vilanterol 100/25 Blst.W.Dev) 1 puff INHALE RDAILY [facility] Last Admin: 08/25/21 07:50 Dose: Not Given Documented by: CHING Non-Admin Reason: Med Not Available Folic Acid (Folic Acid 1 Mg Tablet) 1 mg PO DAILY [facility] Last Admin: 08/25/21 07:49 Dose: 1 mg Documented by: CHING Doxycycline Hyclate 100 mg/ (Sodium Chloride) 250 mls @ 166.67 mls/hr IV Q12H [facility] Last Admin: 08/25/21 06:50 Dose: 166.67 mls/hr Documented by: NATALY Remdesivir 100 mg/ Sodium (Chloride) 230 mls @ 115 mls/hr IV Q24H [facility] Stop: 08/26/21 20:59 Methylprednisolone Sodium Succinate (Methylprednisolone Sod Succ 40 Mg/Ml Vial) 40 mg IVPUSH Q12H [facility] Last Admin: 08/25/21 06:50 Dose: 40 mg Documented by: NATALY Multivitamins/Vitamin C (Multivitamin Tablet) 1 tab PO DAILY [facility] Last Admin: 08/25/21 07:50 Dose: 1 tab Documented by: CHING Ondansetron HCl (Ondansetron Hcl 4 Mg/2 Ml Vial) 4 mg IVPUSH Q8H PRN PRN Reason: Nausea and Vomiting Oxycodone HCl (Oxycodone Hcl Er 10 Mg Tab.Er.12h) 10 mg PO DAILY [facility] Last Admin: 08/25/21 07:49 Dose: 10 mg Documented by: CHING Oxycodone HCl (Oxycodone Hcl Er 40 Mg Tab.Er.12h) 40 mg PO BID [facility] Last Admin: 08/25/21 07:49 Dose: 40 mg Documented by: CHING Pharmacy Consult (Consult Rx Perform Med Rec) 1 each MISCELLANE ONCE PRN PRN Reason: Consult order Quetiapine Fumarate (Quetiapine Fumarate 100 Mg Tablet) 100 mg PO BEDTIME [facility] Last Admin: 08/24/21 21:34 Dose: 100 mg Documented by: NATALY Senna/Docusate Sodium (Sennosides/Docusate Sodium Tablet) 1 tab PO DAILY [facility] Last Admin: 08/25/21 07:48 Dose: 1 tab Documented by: CHING Sertraline HCl (Sertraline Hcl 100 Mg Tablet) 100 mg PO DAILY [facility] Last Admin: 08/25/21 07:49 Dose: 100 mg Documented by: CHING Sodium Chloride (0.9 % Sodium Chloride Flush 3 Ml Syringe) 3 ml IVFLUSH QSHIFT [facility] Last Admin: 08/25/21 07:21 Dose: Not Given Documented by: CHING Non-Admin Reason: Med Not Available Tiotropium [place] (Tiotropium [place] 18 Mcg Cap.W.Dev) 1 puff INHALE RDAILY [facility] Last Admin: 08/25/21 07:50 Dose: Not Given Documented by: CHING Non-Admin Reason: Med Not Available Trazodone HCl (Trazodone Hcl 100 Mg Tablet) 200 mg PO BEDTIME PRN PRN Reason: Insomnia Vitamin D (Cholecalciferol (Vitamin D3) 25 Mcg Tablet) 25 mcg PO DAILY [facility] Last Admin: 08/25/21 07:49 Dose: 25 mcg Documented by: CIHNG Labs CBC & Chem 7: 08/25/21 06:49 08/25/21 06:49 Labs: Laboratory Results - last 24 hr 08/24/21 08/24/21 08/24/21 14:37 14:37 14:37 MCV MCH MCHC RDW Plt Count MPV Immature Gran % (Auto) Neut % (Auto) Lymph % (Auto) [place] % (Auto) Eos % (Auto) Baso % (Auto) Lymph # (Auto) [place] # (Auto) Eos # (Auto) Baso # (Auto) Abs Immat Gran (auto) Absolute Neuts (auto) Absolute Nucleated RBC Nucleated RBC % (auto) PT INR APTT D-Dimer High Sensitivty Anion Gap 10 L Estim Creat Clear Calc TNP Estimated GFR > 60 Random Glucose 129 H Lactic Acid 0.8 Calcium 8.8 Magnesium 2.0 Ferritin 160 Total Bilirubin 0.6 Direct Bilirubin 0.3 AST 23 ALT 18 Alkaline Phosphatase 58 Lactate Dehydrogenase 269 Total Creatine Kinase 100 Troponin I High Sens 14.9 C-Reactive Protein 8.26 H Total Protein 6.3 L Albumin 3.3 L Procalcitonin Urine Color Urine Appearance Urine pH Ur Specific S [place] Urine Protein Urine Glucose (UA) Urine Ketones Urine Blood Urine Nitrite Ur Leukocyte Esterase COVID-19 (PRIYA) COVID-19 Clin Com 08/24/21 08/24/21 08/24/21 14:37 14:38 14:39 MCV MCH MCHC RDW Plt Count MPV Immature Gran % (Auto) Neut % (Auto) Lymph % (Auto) [place] % (Auto) Eos % (Auto) Baso % (Auto) Lymph # (Auto) [place] # (Auto) Eos # (Auto) Baso # (Auto) Abs Immat Gran (auto) Absolute Neuts (auto) Absolute Nucleated RBC Nucleated RBC % (auto) PT 11.5 INR 1.0 APTT 34.1 D-Dimer High Sensitivty 282 Anion Gap Estim Creat Clear Calc Estimated GFR Random Glucose Lactic Acid Calcium Magnesium Ferritin Total Bilirubin Direct Bilirubin AST ALT Alkaline Phosphatase Lactate Dehydrogenase Total Creatine Kinase Troponin I High Sens C-Reactive Protein Total Protein Albumin Procalcitonin 0.12 Urine Color Urine Appearance Urine pH Ur Specific S [place] Urine Protein Urine Glucose (UA) Urine Ketones Urine Blood Urine Nitrite Ur Leukocyte Esterase COVID-19 (PRIYA) Positive A COVID-19 Clin Com See Note 08/24/21 08/24/21 08/25/21 14:40 22:51 06:49 MCV 92.3 93.0 MCH 29.0 29.2 MCHC 31.5 31.4 RDW 17.0 H 16.5 H Plt Count 190 203 MPV 10.0 10.5 Immature Gran % (Auto) 0.3 Neut % (Auto) 85.3 H Lymph % (Auto) 3.9 L [place] % (Auto) 9.8 Eos % (Auto) 0.5 Baso % (Auto) 0.2 Lymph # (Auto) 0.2 L [place] # (Auto) 0.6 Eos # (Auto) 0.0 Baso # (Auto) 0.0 Abs Immat Gran (auto) 0.02 Absolute Neuts (auto) 5.3 Absolute Nucleated RBC 0.000 0.000 Nucleated RBC % (auto) 0.0 0.0 PT INR APTT D-Dimer High Sensitivty Anion Gap Estim Creat Clear Calc Estimated GFR Random Glucose Lactic Acid Calcium Magnesium Ferritin Total Bilirubin Direct Bilirubin AST ALT Alkaline Phosphatase Lactate Dehydrogenase Total Creatine Kinase Troponin I High Sens C-Reactive Protein Total Protein Albumin Procalcitonin Urine Color YELLOW Urine Appearance CLEAR Urine pH 5.5 Ur Specific S [place] <= 1.005 Urine Protein NEG Urine Glucose (UA) NEG Urine Ketones NEG Urine Blood NEG Urine Nitrite NEG Ur Leukocyte Esterase NEG COVID-19 (PRIYA) COVID-19 Clin Com 08/25/21 06:49 MCV MCH MCHC RDW Plt Count MPV Immature Gran % (Auto) Neut % (Auto) Lymph % (Auto) [place] % (Auto) Eos % (Auto) Baso % (Auto) Lymph # (Auto) [place] # (Auto) Eos # (Auto) Baso # (Auto) Abs Immat Gran (auto) Absolute Neuts (auto) Absolute Nucleated RBC Nucleated RBC % (auto) PT INR APTT D-Dimer High Sensitivty Anion Gap 11 L Estim Creat Clear Calc 82.5 Estimated GFR > 60 Random Glucose 124 H Lactic Acid Calcium 8.4 Magnesium Ferritin Total Bilirubin 0.4 Direct Bilirubin AST 23 ALT 17 Alkaline Phosphatase 51 Lactate Dehydrogenase Total Creatine Kinase Troponin I High Sens C-Reactive Protein Total Protein 6.0 L Albumin 3.1 L Procalcitonin Urine Color Urine Appearance Urine pH Ur Specific S [place] Urine Protein Urine Glucose (UA) Urine Ketones Urine Blood Urine Nitrite Ur Leukocyte Esterase COVID-19 (PRIYA) COVID-19 Clin Com Assessment and Plan (1) Pneumonia due to 2019-nCoV: Status: Acute (2) COPD exacerbation: Status: Acute (3) Encephalopathy acute: Status: Acute Assessment and Plan: hospital d#2 ?71yo M with advanced COPD and bronchiectasis and pulmonary fibrosis on a long, slow prednisone taper and on home O2 presenting after 8 days of cough and fever, noted to be confused, testing positive for Covid-19 but not hypoxic # breakthrough Covid-19 PNA - trend inflammatory markers on d#2/3 remdesivir, steroids for COPD exacerbation # COPD exacerbation - IV methlyprednisolone, doxycycline, standing/prn nebs, continue home triple therapy ICS/LABA/LAMA # acute encephalopathy - resolved # chronic hypoxic respiratory failure - baseline 3L O2 via [place], goal SaO2 88-92%.? per his VNA he is usually around 90% at rest, 85% with exertion # CAD - continue ASA + statin # chronic pain - continue oxycodone # depression/mood - continue quetiapine, clonazepam, sertraline # prostatism - continue finasteride # VTE ppx - LMWH # dispo - possibly home tomorrow with VNA Quality Stroke Does the patient have a stroke diagnosis?: No VTE Prior VTE?: No VTE Risk Level:: Medical - moderate - high VTE Device Contraindication: N/A - Device Ordered VTE Drug Contraindication: N/A - Med Ordered
[2021-08-25 16:05] VITALS: BP 128/70; PULSE 80; RESP 18; TEMP 36.6; O2SAT 95
[2021-08-25 18:06] VITALS: PULSE 65; RESP 17; O2SAT 99
[2021-08-25] MEDS: Enoxaparin Sodium 40 MG/0.4 ML SYRINGE SUBCUT (18:06)
[2021-08-25] MEDS: Remdesivir 100 MG in 0.9 % Sodium Chloride 230 ML 115 MG IV (19:47)
[2021-08-25] MEDS: QUEtiapine Fumarate 100 MG TABLET PO (21:35)
[2021-08-25] MEDS: traZODone HCL 100 MG TABLET 200 MG PO (21:35)
[2021-08-26 00:17] VITALS: PULSE 64; RESP 10
[2021-08-26 04:01] VITALS: BP 178/86; PULSE 78; RESP 14; O2SAT 99
--- NOTE | 2021-08-26 04:03 | PC.NURSE ---
PT found sitting up on the side of the bed. When this RN entered the room, PT stated that he needed his sheets changed. This RN stood by the PT's side as he transferred himself to a chair and sat at the bed side while linens were changed. PT was incontinent of urine in bed. PT stated that he wanted to go home yesterday but made an agreement with the doctor to stay one more day. PT O2 sat remained above 95% with ambulation out of bed.
[2021-08-26 06:08] VITALS: BP 142/82; PULSE 56; RESP 16; O2SAT 99
[2021-08-26] MEDS: methylPREDNISolone Sod Succ 40 MG/ML VIAL IVPUSH (06:11)
[2021-08-26] MEDS: Doxycycline Hyclate 100 MG in 0.9 % Sodium Chloride 250 ML 166.67 MG IV (06:11)
[2021-08-26 07:06] LABS: Hematocrit 36.3 % (42.0-52.0); Hemoglobin 11.3 g/dl (14.0-18.0); Mean Corpuscular HGB Conc 31.1 g/dl (31.0-36.0); Mean Corpuscular Hemoglobin 28.5 pg (27.0-33.0); Mean Corpuscular Volume 91.7 fL (80.0-98.0); Mean Platelet Volume 10.5 fL (9.4-12.4); Platelet Count 226 X10*3/uL (160-400); Red Blood Count 3.96 X10*6/uL (4.60-5.80); Red Cell Distribution Width 15.8 % (11.0-16.0); White Blood Count 3.7 X10*3/uL (4.8-10.8)
[2021-08-26] MEDS: Sennosides/Docusate Sodium TABLET 1 TAB PO (07:10)
[2021-08-26] MEDS: Aspirin Enteric Coated 81 MG TABLET.DR PO (07:10)
[2021-08-26] MEDS: Famotidine 20 MG TABLET 40 MG PO (07:10)
[2021-08-26] MEDS: Cholecalciferol (Vitamin D3) 25 MCG TABLET PO (07:10)
[2021-08-26] MEDS: Atorvastatin Calcium 80 MG TABLET PO (07:10)
[2021-08-26] MEDS: oxyCODONE HCl ER 10 MG TAB.ER.12H PO (07:10)
[2021-08-26] MEDS: Folic Acid 1 MG TABLET PO (07:11)
[2021-08-26] MEDS: Multivitamin TABLET 1 TAB PO (07:11)
[2021-08-26] MEDS: oxyCODONE HCl ER 40 MG TAB.ER.12H PO (07:11)
[2021-08-26] MEDS: Sertraline HCL 100 MG TABLET PO (07:11)
[2021-08-26 07:18] LABS: D Dimer High Sensitivity 247 NG/ML
[2021-08-26 07:37] LABS: Alanine Aminotransferase 15 U/L (0-40); Albumin Level 2.9 g/dL (3.5-5.0); Alkaline Phosphatase 49 U/L (39-117); Anion Gap 11 (12-20); Aspartate Amino Transferase 22 U/L (5-37); Bilirubin Total 0.4 mg/dL (0.0-1.0); Blood Urea Nitrogen 16 mg/dL (9-16); C Reactive Protein 4.45 mg/dL (< or = 0.50); Calcium 8.4 mg/dL (8.4-10.2); Carbon Dioxide 32 mmol/L (22-29); Chloride 102 mmol/L (96-108); Creatinine Clr Calc Pharmacy 81.5; Estimated Glomerular Filt Rate > 60; Glucose Random 115 mg/dL (60-115); Potassium 4.4 mmol/L (3.3-5.1); Sodium 141 mmol/L (135-145); Total Protein 5.6 g/dL (6.5-8.0)
[2021-08-26 10:29] VITALS: BP 151/77; PULSE 77; RESP 15; TEMP 36.6; O2SAT 94
[2021-08-26] MEDS: ondansetron HCL 4 MG/2 ML VIAL IVPUSH (10:33)
--- NOTE | 2021-08-26 12:51 | P.DS_ITS ---
DS: Providers Provider Date of Service: 08/26/21 Date of admission: 08/24/21 17:17 Primary care physician: Unknown Physician DS: Diagnosis Discharge Diagnosis (1) Pneumonia due to 2019-nCoV: Status: Acute (2) COPD exacerbation: Status: Acute (3) Encephalopathy acute: Status: Acute (4) Chronic respiratory failure with hypoxia: Status: Acute DS: Summary Hospital Course Hospital Course: from my admission H+P, 08/24/21: 71yo M with COPD, bronchiectasis, and pulmonary fibrosis, on home O2 3L via [place].? He is a poor historian.? History is per the ED physician as well as my telephone conversation with his VNA Yennifer, whose phone number is [phone].? The patient's HCP, his jjowqh-se-kmu Mady, no longer wants anything to do with him, and her alternate, his brother Ladarius, has a number that does not work.? Per Yennifer the patient is estranged from his family.? He relates that he lives with his ART SPECIALIST but he actually lives alone and his ART SPECIALIST comes 5 days a week. He has a chronic purulent cough and has been on steroids since February, with a gradual taper as per his protective signal installer helper, Dr Mariajose Chowdhury, at [facility].? He was exposed to Covid-19 through his ART SPECIALIST, who give him a ride, 6 days ago.? His VNA called 911 as the patient was confused and incontinent of urine, which is not his baseline.? He initially refused transport and has a history of trying to sign out AMA from the hospital.? He tells me that he has been coughing and endorses dyspnea and wheeze.? He states this has been going on for 8 days, but as note above, he has a chronic cough.? He is oriented to self and place but not to date. ? He does relate that he had 2 doses of a Covid vaccine plus a booster of the same. In the ED, he was noted to have fever to 100.7 and disoriented. CXR showed patchy R>L mid-lung infiltrates.? He was given 1 dose of IV ceftriaxone.? CT head is pending.? Covid-19 PRIYA positive. This 71yo M with advanced COPD and bronchiectasis and pulmonary fibrosis on a long, slow prednisone taper and on 3 liters of home O2 presented after 8 days of cough and fever and was noted to be confused. He tested positive for Covid-19 but was did not have hypoxia. He was given 3 days of IV remdesivir given high risk of severe COVID and was given IV methylprednisolone. Encephalopathy resolved and was likely due to fever from Covid-19. He was maintained on his home dose of O2. He was discharged home on a long, slow prednisone taper with resumption of VNA and ART SPECIALIST services and should follow up with his primary care doctor and his protective signal installer helper in 1-2 weeks. Time Spent with Patient Time attestation: Total time spent providing and/or coordinating discharge services: Discharge coordination time: Greater than 30 minutes Quality: Stroke Does the patient have a stroke diagnosis?: No Physical Exam Vital Signs: Vital Signs: Last Vital Signs Temp 97.8 F 08/26/21 10:29 Pulse 77 08/26/21 10:29 Resp 15 08/26/21 10:29 BP 151/77 H 08/26/21 10:29 Pulse Ox 94 08/26/21 10:29 Oxygen Flow Rate 3 08/24/21 14:20 BMI result Body Mass Index 22.9 Gen: in no acute distress HEENT: sclera anicteric, moist mucus membranes Neck: supple Lungs: diminished breath sounds, no wheezing Heart: regular rate and rhythm, no murmurs Abd: soft, non-tender, non-distended Ext: no edema Skin: warm/well-perfused Neuro: fully oriented, no focal findings Psych: appropriate affect DS: Data Data Completed and Pending Completed studies during hospitalization [Text1]: Laboratory Results WBC 3.7 X10*3/uL (4.8-10.8) L 08/26/21 06:40 RBC 3.96 X10*6/uL (4.60-5.80) L 08/26/21 06:40 Hgb 11.3 g/dl (14.0-18.0) L 08/26/21 06:40 Hct 36.3 % (42.0-52.0) L 08/26/21 06:40 MCV 91.7 fL (80.0-98.0) 08/26/21 06:40 MCH 28.5 pg (27.0-33.0) 08/26/21 06:40 MCHC 31.1 g/dl (31.0-36.0) 08/26/21 06:40 RDW 15.8 % (11.0-16.0) 08/26/21 06:40 Plt Count 226 X10*3/uL (160-400) 08/26/21 06:40 MPV 10.5 fL (9.4-12.4) 08/26/21 06:40 Immature Gran % (Auto) 0.3 % (0.0-0.4) 08/24/21 14:40 Neut % (Auto) 85.3 % (45-73) H 08/24/21 14:40 Lymph % (Auto) 3.9 % (20-40) L 08/24/21 14:40 [place] % (Auto) 9.8 % (2-11) 08/24/21 14:40 Eos % (Auto) 0.5 % (0-4) 08/24/21 14:40 Baso % (Auto) 0.2 % (0-2) 08/24/21 14:40 Lymph # (Auto) 0.2 X10*3/uL (1.2-4.9) L 08/24/21 14:40 [place] # (Auto) 0.6 X10*3/uL (0.1-1.2) 08/24/21 14:40 Eos # (Auto) 0.0 X10*3/uL (0.0-0.4) 08/24/21 14:40 Baso # (Auto) 0.0 X10*3/uL (0.0-0.2) 08/24/21 14:40 Abs Immat Gran (auto) 0.02 X10*3/uL (0.00-0.03) 08/24/21 14:40 Absolute Neuts (auto) 5.3 x10*3/uL (2.0-8.3) 08/24/21 14:40 Absolute Nucleated RBC 0.000 X10*3/uL (0.0-0.012) 08/26/21 06:40 Nucleated RBC % (auto) 0.0 /100WBC (0.0-0.2) 08/26/21 06:40 PT 11.5 SEC (9.9-13.0) 08/24/21 14:38 INR 1.0 (0.9-1.1) 08/24/21 14:38 APTT 34.1 SEC (24.1-38.0) 08/24/21 14:38 D-Dimer High Sensitivty 247 NG/ML 08/26/21 06:40 Sodium 141 mmol/L (135-145) 08/26/21 06:40 Potassium 4.4 mmol/L (3.3-5.1) 08/26/21 06:40 Chloride 102 mmol/L (96-108) 08/26/21 06:40 Carbon Dioxide 32 mmol/L (22-29) H 08/26/21 06:40 Anion Gap 11 (12-20) L 08/26/21 06:40 BUN 16 mg/dL (9-16) 08/26/21 06:40 Creatinine 0.84 mg/dL (0.5-1.4) 08/26/21 06:40 Estim Creat Clear Calc 81.5 08/26/21 06:40 Estimated GFR > 60 08/26/21 06:40 Random Glucose 115 mg/dL (60-115) 08/26/21 06:40 Lactic Acid 0.8 mmol/L (0.5-2.0) 08/24/21 14:37 Calcium 8.4 mg/dL (8.4-10.2) 08/26/21 06:40 Magnesium 2.0 mg/dL (1.6-2.6) 08/24/21 14:37 Ferritin 160 ng/mL (20-250) 08/24/21 14:37 Total Bilirubin 0.4 mg/dL (0.0-1.0) 08/26/21 06:40 Direct Bilirubin 0.3 mg/dL (0.0-0.5) 08/24/21 14:37 AST 22 U/L (5-37) 08/26/21 06:40 ALT 15 U/L (0-40) 08/26/21 06:40 Alkaline Phosphatase 49 U/L (39-117) 08/26/21 06:40 Lactate Dehydrogenase 269 U/L (118-273) 08/24/21 14:37 Total Creatine Kinase 100 U/L (38-174) 08/24/21 14:37 Troponin I High Sens 14.9 ng/L (<3.5-35.0) 08/24/21 14:37 C-Reactive Protein 4.45 mg/dL (< or = 0.50) H 08/26/21 06:40 Total Protein 5.6 g/dL (6.5-8.0) L 08/26/21 06:40 Albumin 2.9 g/dL (3.5-5.0) L 08/26/21 06:40 Procalcitonin 0.12 ng/mL 08/24/21 14:37 Urine Color YELLOW 08/24/21 22:51 Urine Appearance CLEAR 08/24/21 22:51 Urine pH 5.5 (5.0-8.0) 08/24/21 22:51 Ur Specific [place] <= 1.005 (1.005-1.025) 08/24/21 22:51 Urine Protein NEG MG/DL (NEG-TRACE) 08/24/21 22:51 Urine Glucose (UA) NEG MG/DL (NEG) 08/24/21 22:51 Urine Ketones NEG MG/DL (NEG) 08/24/21 22:51 Urine Blood NEG (NEG) 08/24/21 22:51 Urine Nitrite NEG (NEG) 08/24/21 22:51 Ur Leukocyte Esterase NEG (NEG) 08/24/21 22:51 COVID-19 (PRIYA) Positive (Negative) A 08/24/21 14:39 COVID-19 Clin Com See Note 08/24/21 14:39 Impressions Chest X-Ray 08/24/21 15:05 IMPRESSION: Radicular patchy opacities in both lungs slightly greater in the left midlung region suspicious for developing infiltrates. There is moderate right apical opacity likely apical scarring with underlying atelectasis. The right lung is hypoexpanded. Head CT 08/24/21 17:24 IMPRESSION: No acute intracranial process seen. Age-related cerebral volume loss with chronic small vessel ischemic changes. Discharge Plan Discharge Patient Disposition: Home Health Service Discharge Diagnosis: Covid-19 pneumonia, COPD exacerbation, encephalopathy Referrals: [facility] [Provider Group] - 1 Week [facility] [Outside] - 1 Week Sugar Peraza MD [Physician] - 1 Week Discharge Medications: New prednisone 10 mg tablet See Rx Instructions .ROUTE .COMPLEX Qty: 70 RF: 0 Continued multivitamin Tablet 1 tab PO DAILY RF: 0 atorvastatin 80 mg tablet 1 tab PO DAILY RF: 0 albuterol sulfate 2.5 mg /3 mL (0.083 %) solution for nebulization 2.5 mg inhalation QID PRN (Reason: Wheezing) RF: 0 ondansetron HCl 4 mg tablet 1 tab PO Q8H PRN (Reason: Nausea) RF: 0 famotidine 40 mg tablet 1 tab PO DAILY RF: 0 clonazepam 0.5 mg tablet 1 tab PO TID PRN (Reason: Anxiety) RF: 0 sennosides-docusate sodium [Stimulant Laxative Plus] 8.6-50 mg tablet 1 tab PO DAILY RF: 0 sertraline 100 mg tablet 1 tab PO DAILY RF: 0 aspirin 81 mg tablet,delayed release (DR/EC) 1 tab PO DAILY RF: 0 quetiapine 100 mg tablet 1 tab PO BEDTIME RF: 0 folic acid 1 mg tablet 1 tab PO DAILY RF: 0 albuterol sulfate 90 mcg/actuation HFA aerosol inhaler 90 mcg inhalation Q4H RF: 0 finasteride 5 mg tablet 1 tab PO DAILY RF: 0 oxycodone [OxyContin] 10 mg tablet,oral only,ext.rel.12 hr 10 mg PO DAILY RF: 0 oxycodone [OxyContin] 40 mg tablet,oral only,ext.rel.12 hr 1 tab PO BID RF: 0 Trelegy Ellipta 100-62.5-25 mcg blister with device 1 puff inhalation DAILY RF: 0 trazodone 100 mg tablet 2 tab PO BEDTIME PRN (Reason: Insomnia) RF: 0 cholecalciferol (vitamin D3) 25 mcg (1,000 unit) Tablet 25 mcg PO DAILY RF: 0 Discontinued prednisone 5 mg Tablet 5 mg PO Q2D RF: 0 prednisone 5 mg tablet 10 mg PO Q2D RF: 0 Discharge Orders: Discharge Order (Routine); Ordered 08/26/21 Ordered By: Sherrell Torres Diet: advance to usual diet Activity on Discharge: As tolerated Stand Alone Forms: Patient Portal Discharge page Care Plan Goals: recovery from Covid-19 lung health Health Concerns: Covid-19 severe COPD Plan of Treatment: slow prednisone taper: - 40 mg daily x 7 days, then 30 mg daily x 7 days, then 20 mg daily x 7 days, then 10 mg daily x 7 days. After that, taper as per Dr Chowdhury, your protective signal installer helper continue to use your Trelegy inhaler see your primary care doctor in 1-2 weeks see your protective signal installer helper in 1-2 weeks continue to use oxygen 3L at all times; goal SaO2 88-92% self-isolation as per CDC guidelines Assessment: see Discharge Summary Patient Instructions: COPD (Chronic Obstructive Pulmonary Disease) (GEN), COVID-19 (Coronavirus Disease 2019) (DC)
--- NOTE | 2021-08-26 13:00 | MHC.CM.PN ---
Received notification from Dr Torres that patient will be d/c'd home today. Patient was seen by physical therapy. Home therapy is being recommended. [facility] is active with [facility] for nursing. They will not be able to provide physical therapy. T/W contacted Sofy at [facility]. [facility] will arrange physical therapy. [facility] transportation booked for 4pm. Med [facility] with chart. Patient, Corey AVALOS and Dr Torres aware.
[2021-08-26] MEDS: Remdesivir 100 MG in 0.9 % Sodium Chloride 230 ML 115 MG IV (14:07)
[2021-08-26 17:34] VITALS: BP 146/73; PULSE 58; RESP 17; TEMP 36.6; O2SAT 93
== END 2021-08-26 18:40 | disposition home health service (06) | DRG 177 ==
LOC: HO.ED 17:19 → HO.EDOVER 17:28
PROVIDERS: Admitting Provider Family Medicine; Emergency Provider Emergency Medicine; PCP Internal Medicine Geriatric Medicine; Visit Provider Family Medicine
DX: U07.1 COVID-19 (principal); J12.82 Pneumonia due to coronavirus disease 2019; J44.0 Chronic obstructive pulmonary disease with (acute) lower respiratory infection; J44.1 Chronic obstructive pulmonary disease with (acute) exacerbation; G93.49 Other encephalopathy; J96.11 Chronic respiratory failure with hypoxia; J84.10 Pulmonary fibrosis, unspecified; F32.A Depression, unspecified; G89.29 Other chronic pain; N40.0 Benign prostatic hyperplasia without lower urinary tract symptoms; Z99.81 Dependence on supplemental oxygen; Z79.82 Long term (current) use of aspirin; Z79.899 Other long term (current) drug therapy
CPT/HCPCS: 36415; 70450; 71045; 80048; 80053; 80076; 81003; 82550; 82728; 83605; 83615; 83735; 84145; 84484; 85025; 85027; 85379; 85610; 85730; 86140; 87040; 87635; 93005; 97162; 99285; J0248; J0696; J1650; J2405; J2920

== ENCOUNTER 2021-10-20 10:56 | Inpatient (IN) | payer MEDICARE, SELFPAY ==
[2021-10-20] VITALS (11 sets, daily range): BP systolic 104–141; BP diastolic 57–80; PULSE 79–130; RESP 17–40; TEMP 36.2–39.7; O2SAT 91–98; BMI 20.4
--- NOTE | ~2021-10-20 | CT_ITS ---
EXAMINATION: CT ABDOMEN AND PELVIS WITHOUT CONTRAST CLINICAL INFORMATION: Acute mental status change. Fever. COMPARISON: Chest CT the same day TECHNIQUE: Multidetector volumetric imaging was performed from the superior aspect of the liver through the pubic symphysis. Sagittal and coronal reformatted images were obtained on the technologist's workstation. This CT examination was performed using dose optimization techniques as appropriate, variously including the following: *Automated exposure control *Adjustment of mA and/or kV according to patient size (this includes techniques or standardized protocols for targeted exams where dose is matched to indication/reason for exam; i.e. extremities or head) *Use of iterative reconstruction technique DLP: 584 mGy-cm FINDINGS: LIVER, GALLBLADDER, AND BILIARY TREE: The liver is normal in size, shape, and attenuation. No focal hepatic lesion or biliary ductal dilatation is present. The gallbladder is unremarkable with no evidence of radiopaque gallstones, gallbladder wall thickening, or obvious pericholecystic inflammatory changes. PANCREAS: Unremarkable. SPLEEN: Unremarkable. ADRENAL GLANDS: Unremarkable. KIDNEYS AND URETERS: The kidneys are normal in size, shape, and attenuation. No hydronephrosis, hydroureter, or calculi seen. No perinephric stranding. BLADDER: Unremarkable. GASTROINTESTINAL TRACT: There is stool throughout the colon suggestive of constipation. Small and large bowel are otherwise unremarkable. The appendix is unremarkable. ABDOMINAL WALL: No significant hernia is appreciated. LYMPH NODES: Normal. VASCULAR: There is evidence of atherosclerotic disease. PELVIC VISCERA: Unremarkable. OSSEOUS STRUCTURES: There are surgical changes with posterior fusion hardware and interpedicular screws at L1-L2 L3-L4 and S1. There are degenerative changes of the spine and hip joints. CT/CT abdomen pelvis wo con IMPRESSION: No acute findings. Constipation. Atherosclerotic disease. Fleischner guidelines were followed.
--- NOTE | ~2021-10-20 | CT_ITS ---
EXAMINATION: CT CERVICAL SPINE WITHOUT CONTRAST CLINICAL INFORMATION: Acute mental status change. Fever. COMPARISON: None TECHNIQUE: Axial images through the cervical spine without contrast. Sagittal and coronal reconstructions on the technologist workstation were performed. This CT examination was performed using dose optimization techniques as appropriate, variously including the following: *Automated exposure control *Adjustment of mA and/or kV according to patient size (this includes techniques or standardized protocols for targeted exams where dose is matched to indication/reason for exam; i.e. extremities or head) *Use of iterative reconstruction technique DLP: 290 mGy-cm FINDINGS: There is a 4 mm posterior subluxation of C3 with respect to C2 and 3 mm posterior subluxation with C3 with respect to C4. Bone alignment is otherwise normal. There is anterior fusion hardware at C5-C6. There is bony ankylosis at the C5-C6 disc space. There are laminectomy changes at C2-C3 and C4. No fracture or dislocation is seen. Orthopedic hardware is intact. There is degenerative spondylosis and degenerative disc disease at C2-C3 C3-C4 C4-C5 and C6-C7. There are degenerative changes at the C1 dens articulation. Prevertebral soft tissues are normal. There is bilateral carotid calcification. CT/CT cervical spine wo con IMPRESSION: No fracture or dislocation. Postsurgical changes at C5-C6 and bony ankylosis at the C5-C6 disc space. Post laminectomy from C2 to C4. Mild posterior subluxation of C3 with respect to C2 and C4. Multilevel degenerative spondylosis and degenerative disc disease. Fleischner guidelines were followed.
--- NOTE | ~2021-10-20 | CT_ITS ---
EXAMINATION: CT HEAD WITHOUT CONTRAST CLINICAL INFORMATION: Acute mental status change. Fever. COMPARISON: Previous head CT August 2021 TECHNIQUE: Contiguous axial imaging was performed from the skull base to vertex without intravenous administration of contrast. This CT examination was performed using dose optimization techniques as appropriate, variously including the following: *Automated exposure control *Adjustment of mA and/or kV according to patient size (this includes techniques or standardized protocols for targeted exams where dose is matched to indication/reason for exam; i.e. extremities or head) *Use of iterative reconstruction technique DLP: 672 mGy-cm FINDINGS: There is no evidence of an extra-axial collection. There is no evidence of intra-axial or extra-axial hemorrhage. The ventricles and extra-axial CSF spaces are slightly prominent suggestive of generalized atrophy. There is nonspecific periventricular white matter disease. No mass, mass effect or infarct is seen. Review of bone windows is normal. No skull fracture is seen. Visualized paranasal cyst, mastoid air cells and middle ears are clear. CT/CT head/brain wo con IMPRESSION: No acute intracranial findings.
--- NOTE | ~2021-10-20 | CT_ITS ---
EXAMINATION: CT CHEST WITHOUT CONTRAST CLINICAL INFORMATION: Fever. Mental status change. COMPARISON: Abdominal pelvic CT done the same day and chest x-ray August 2021 TECHNIQUE: Multidetector volumetric CT imaging of the chest was done. Axial MIP volume rendering provided. Sagittal and coronal reformatted images were obtained. This CT examination was performed using dose optimization techniques as appropriate, variously including the following: *Automated exposure control *Adjustment of mA and/or kV according to patient size (this includes techniques or standardized protocols for targeted exams where dose is matched to indication/reason for exam; i.e. extremities or head) *Use of iterative reconstruction technique DLP: 380 mGy-cm FINDINGS: SOCIAL MEDIA ASSISTANT: LUNGS: There is volume loss to the right upper lobe. There is right upper lobe consolidation and cicatrization bronchiectasis. These changes are similar to previous chest x-ray August 2021 and may be chronic. There is diffuse bronchial wall thickening and increased peribronchial attenuation throughout the lungs suggestive of bronchitis and diffuse airways disease. There may be small infiltrates or areas of pneumonia in both lower lobes. MEDIASTINUM: The heart is upper normal in size. There is coronary artery calcification. There is no pericardial effusion. There are small mediastinal lymph nodes. PLEURA: There is no pleural effusion. No pleural mass or thickening. AXILLA: No lymphadenopathy. UPPER ABDOMEN: Unremarkable. OSSEOUS STRUCTURES: There are degenerative changes of the spine. CT/CT chest wo con IMPRESSION: Volume loss to the right upper lobe, cicatrization bronchiectasis and consolidation. This is similar to August 2021 chest x-ray and may be chronic. Bronchitis and diffuse airways disease throughout the lungs. There may be bronchopneumonia in both lower lobes. Fleischner guidelines were followed.
--- NOTE | 2021-10-20 11:11 | ECG_ITS ---
Test Reason : HYPOXIA Blood Pressure : / mmHG Vent. Rate : 126 BPM Atrial Rate : 126 BPM P-R Int : 208 ms QRS Dur : 126 ms QT Int : 314 ms P-R-T Axes : 046 020 118 degrees QTc Int : 454 ms Sinus tachycardia Left bundle branch block Abnormal ECG When compared with ECG of 24-AUG-2021 14:42, No significant change was found Referred By: Alexandrea Mejia Electronically Signed By:FELICIA GODFREY
--- NOTE | 2021-10-20 11:20 | ED_ITS ---
HPI - Altered Mental Status General Chief Complaint: Dyspnea Stated Complaint: LOW O2SAT 50'S D/T NOT WEARING HOME O2 PER EMS Time Seen by Provider: 10/20/21 11:01 Source: EMS and old records reviewed Mode of arrival: EMS Limitations: altered mental status History of Present Illness HPI narrative: EMS found patient sitting in a chair not on his home O2 altered with sats in 50s told by his PRODUCTION SOUND MIXER (does live alone) that the patient was last seen yesterday he was under the weather the past few days but found today more confused and altered not wearing his oxygen MD complaint: altered mental status, confusion and decreased responsiveness Timing confirmed by: caregiver Severity: severe Consistency of symptoms: unknown Context: other (chronic resp failure wears home O2) Associated symptoms: incontinence Treatments prior to arrival: oxygen (NRB 15L) Related Data Home Medications Medication Instructions Recorded Confirmed albuterol sulfate 2.5 mg INHALATION QID PRN 08/24/21 10/20/21 albuterol sulfate 90 mcg/actuation 90 mcg INHALATION Q4H 08/24/21 10/20/21 aerosol inhaler aspirin 81 mg tablet,delayed 1 tab PO DAILY 08/24/21 10/20/21 release atorvastatin 80 mg tablet 1 tab PO DAILY 08/24/21 10/20/21 cholecalciferol (vitamin D3) 25 25 mcg PO DAILY 08/24/21 10/20/21 mcg (1,000 unit) tablet clonazepam 0.5 mg tablet 1 tab PO TID PRN 08/24/21 10/20/21 famotidine 40 mg tablet 1 tab PO DAILY 08/24/21 10/20/21 finasteride 5 mg tablet 1 tab PO DAILY 08/24/21 10/20/21 fluticasone fur. 100 mcg-umeclid 1 puff INHALATION DAILY 08/24/21 10/20/21 62.5 mcg-vilant 25 mcg inhalat.powder (Trelegy Ellipta) folic acid 1 mg tablet 1 tab PO DAILY 08/24/21 10/20/21 multivitamin 1 tab PO DAILY 08/24/21 10/20/21 ondansetron HCl 4 mg tablet 1 tab PO Q8H PRN 08/24/21 10/20/21 oxycodone 10 mg tablet,crush 10 mg PO DAILY 08/24/21 10/20/21 resistant,extended release 12 hr (OxyContin) oxycodone 40 mg tablet,crush 1 tab PO BID 08/24/21 10/20/21 resistant,extended release 12 hr (OxyContin) quetiapine 100 mg tablet 1 tab PO BEDTIME 08/24/21 10/20/21 sennosides 8.6 mg-docusate sodium 1 tab PO DAILY 08/24/21 10/20/21 50 mg tablet (Stimulant Laxative Plus) sertraline 100 mg tablet 1 tab PO DAILY 08/24/21 10/20/21 trazodone 100 mg tablet 2 tab PO BEDTIME PRN 08/24/21 10/20/21 Allergies Allergy/AdvReac Type Severity Reaction Status Date / Time hydromorphone [From Dilaudid] Allergy Intermediate hallucinati Verified 08/24/21 14:18 on Review of Systems Review of Systems: ROS unable to be obtained due to altered mental status PMFSH Past Medical History Medical History Arthritis Bronchiectasis COPD (chronic obstructive pulmonary disease) Coronary artery disease Depression GERD (gastroesophageal reflux disease) Hypertension Left bundle branch block Pulmonary fibrosis Social History Social History Patient Tobacco Use Status: Former Tobacco user Use of substances other than those prescribed or required for medical reasons: No Advance Directives: Yes Advance Directives on File: Yes Advance Directives Date on File: 08/24/21 service: No Current occupational status: retired Physical Exam ED Vital Signs: Vital Signs - 24 hr 10/20/21 11:17 10/20/21 11:26 10/20/21 11:42 Temperature 103.5 F H Pulse Rate 126 H 120 H 125 H Respiratory Rate 40 H 36 H 40 H Blood Pressure 128/65 112/57 L Pulse Oximetry 96 91 L 10/20/21 12:34 Temperature Pulse Rate 115 H Respiratory Rate 34 H Blood Pressure 104/68 Pulse Oximetry 92 BMI result Body Mass Index 20.4 Appearance: Somnolent Oriented X1 (self). Moderate acute distress. Eyes: R pupil 2mm, L pupil 3mm ENT: Pharynx dry MM Neck: Normal inspection. Neck supple. CVS: tachycardic heart rate and rhythm. Pulses normal. Respiratory: Moderate respiratory distress - tachypnea with retractions. Breath sounds very diminished and coarse, bases decreased Abdomen: Soft and nontender. Skin: Skin warm and dry. Normal skin color. Normal skin turgor. Extremities: 1+ pitting lower extremity edema - ankles. No calf ttp Neuro: Oriented X 1 (person). No motor deficit. No sensory deficit. Course Course Course Narrative: needs NRB to maintain sats > 90%, will place on [place] patient improving at this time - alert and oriented x 2 MDM - Altered Mental Status MDM Narrative Medical decision making narrative: 71 yo male with hx of COPD, bronchiectasis, pulmonary fibrosis, on home O2 3L [place], COVID back in August with vaccine and boostered reportedly has been not feeling well x a few days seen by his PRODUCTION SOUND MIXER yesterday EMS found the patient sitting upright dressed no signs of fall but he was altered and sats were 50% he was not on his home O2. At this time will obtain labs, cultures, lactic acid, CT head/cspine/abdomen/chest for trauma/infection. Empiric ceftriaxone and doxy for fevers. Patient will need admission. Suspect UTI vs pneumonia. MO tylenol ordered. Given COPD and hypoxia xopenex and solumedrol ordered. He will need either oxy mask or [place]. Lab Data Result diagrams: 10/20/21 11:31 10/20/21 11:31 Labs: Lab Results 10/20/21 10/20/21 10/20/21 Range/Units 11:31 11:31 11:31 WBC 14.9 H (4.8-10.8) X10*3/uL RBC 3.82 L (4.60-5.80) X10*6/uL Hgb 11.0 L (14.0-18.0) g/dl Hct 35.7 L (42.0-52.0) % MCV 93.5 (80.0-98.0) fL MCH 28.8 (27.0-33.0) pg MCHC 30.8 L (31.0-36.0) g/dl RDW 16.1 H (11.0-16.0) % Plt Count 268 (160-400) X10*3/uL MPV 10.6 (9.4-12.4) fL Immature Gran % (Auto) 0.6 H (0.0-0.4) % Neut % (Auto) 84.3 H (45-73) % Lymph % (Auto) 6.1 L (20-40) % [place] % (Auto) 6.5 (2-11) % Eos % (Auto) 2.2 (0-4) % Baso % (Auto) 0.3 (0-2) % Lymph # (Auto) 0.9 L (1.2-4.9) X10*3/uL [place] # (Auto) 1.0 (0.1-1.2) X10*3/uL Eos # (Auto) 0.3 (0.0-0.4) X10*3/uL Baso # (Auto) 0.1 (0.0-0.2) X10*3/uL Abs Immat Gran (auto) 0.09 H (0.00-0.03) X10*3/uL Absolute Neuts (auto) 12.5 H (2.0-8.3) x10*3/uL Absolute Nucleated RBC 0.000 (0.0-0.012) X10*3/uL Nucleated RBC % (auto) 0.0 (0.0-0.2) /100WBC PT (9.9-13.0) SEC INR (0.9-1.1) VBG pH (7.32-7.43) VBG pCO2 mmHg VBG pO2 mmHg VBG HCO3 (22-26) mmol/L VBG O2 Saturation % VBG Base Excess mmol/L Sodium 143 (135-145) mmol/L Potassium 4.3 (3.3-5.1) mmol/L Chloride 101 (96-108) mmol/L Carbon Dioxide 33 H (22-29) mmol/L Anion Gap 13 (12-20) BUN 11 (9-16) mg/dL Creatinine 0.93 (0.5-1.4) mg/dL Estim Creat Clear Calc 65.6 Estimated GFR > 60 Random Glucose 124 H (60-115) mg/dL Lactic Acid (0.5-2.0) mmol/L Calcium 8.9 (8.4-10.2) mg/dL Magnesium 1.8 (1.6-2.6) mg/dL Total Bilirubin 0.4 (0.0-1.0) mg/dL Direct Bilirubin 0.3 (0.0-0.5) mg/dL AST 21 (5-37) U/L ALT 15 (0-40) U/L Alkaline Phosphatase 75 D (39-117) U/L Total Creatine Kinase 171 D (38-174) U/L Troponin I High Sens (<3.5-35.0) ng/L Total Protein 6.4 L (6.5-8.0) g/dL Albumin 3.1 L (3.5-5.0) g/dL Lipase 4 L (8-78) U/L Procalcitonin ng/mL COVID-19 (PRIYA) Negative (Negative) COVID-19 Clin Com See Note 10/20/21 10/20/21 10/20/21 Range/Units 11:31 11:31 11:31 WBC (4.8-10.8) X10*3/uL RBC (4.60-5.80) X10*6/uL Hgb (14.0-18.0) g/dl Hct (42.0-52.0) % MCV (80.0-98.0) fL MCH (27.0-33.0) pg MCHC (31.0-36.0) g/dl RDW (11.0-16.0) % Plt Count (160-400) X10*3/uL MPV (9.4-12.4) fL Immature Gran % (Auto) (0.0-0.4) % Neut % (Auto) (45-73) % Lymph % (Auto) (20-40) % [place] % (Auto) (2-11) % Eos % (Auto) (0-4) % Baso % (Auto) (0-2) % Lymph # (Auto) (1.2-4.9) X10*3/uL [place] # (Auto) (0.1-1.2) X10*3/uL Eos # (Auto) (0.0-0.4) X10*3/uL Baso # (Auto) (0.0-0.2) X10*3/uL Abs Immat Gran (auto) (0.00-0.03) X10*3/uL Absolute Neuts (auto) (2.0-8.3) x10*3/uL Absolute Nucleated RBC (0.0-0.012) X10*3/uL Nucleated RBC % (auto) (0.0-0.2) /100WBC PT 12.5 (9.9-13.0) SEC INR 1.1 (0.9-1.1) VBG pH (7.32-7.43) VBG pCO2 mmHg VBG pO2 mmHg VBG HCO3 (22-26) mmol/L VBG O2 Saturation % VBG Base Excess mmol/L Sodium (135-145) mmol/L Potassium (3.3-5.1) mmol/L Chloride (96-108) mmol/L Carbon Dioxide (22-29) mmol/L Anion Gap (12-20) BUN (9-16) mg/dL Creatinine (0.5-1.4) mg/dL Estim Creat Clear Calc Estimated GFR Random Glucose (60-115) mg/dL Lactic Acid 1.4 (0.5-2.0) mmol/L Calcium (8.4-10.2) mg/dL Magnesium (1.6-2.6) mg/dL Total Bilirubin (0.0-1.0) mg/dL Direct Bilirubin (0.0-0.5) mg/dL AST (5-37) U/L ALT (0-40) U/L Alkaline Phosphatase (39-117) U/L Total Creatine Kinase (38-174) U/L Troponin I High Sens 46.5 H D (<3.5-35.0) ng/L Total Protein (6.5-8.0) g/dL Albumin (3.5-5.0) g/dL Lipase (8-78) U/L Procalcitonin ng/mL COVID-19 (PRIYA) (Negative) COVID-19 Clin Com 10/20/21 10/20/21 Range/Units 11:31 11:33 WBC (4.8-10.8) X10*3/uL RBC (4.60-5.80) X10*6/uL Hgb (14.0-18.0) g/dl Hct (42.0-52.0) % MCV (80.0-98.0) fL MCH (27.0-33.0) pg MCHC (31.0-36.0) g/dl RDW (11.0-16.0) % Plt Count (160-400) X10*3/uL MPV (9.4-12.4) fL Immature Gran % (Auto) (0.0-0.4) % Neut % (Auto) (45-73) % Lymph % (Auto) (20-40) % [place] % (Auto) (2-11) % Eos % (Auto) (0-4) % Baso % (Auto) (0-2) % Lymph # (Auto) (1.2-4.9) X10*3/uL [place] # (Auto) (0.1-1.2) X10*3/uL Eos # (Auto) (0.0-0.4) X10*3/uL Baso # (Auto) (0.0-0.2) X10*3/uL Abs Immat Gran (auto) (0.00-0.03) X10*3/uL Absolute Neuts (auto) (2.0-8.3) x10*3/uL Absolute Nucleated RBC (0.0-0.012) X10*3/uL Nucleated RBC % (auto) (0.0-0.2) /100WBC PT (9.9-13.0) SEC INR (0.9-1.1) VBG pH 7.39 (7.32-7.43) VBG pCO2 61 mmHg VBG pO2 43 mmHg VBG HCO3 37 H (22-26) mmol/L VBG O2 Saturation 66.0 % VBG Base Excess 10.8 mmol/L Sodium (135-145) mmol/L Potassium (3.3-5.1) mmol/L Chloride (96-108) mmol/L Carbon Dioxide (22-29) mmol/L Anion Gap (12-20) BUN (9-16) mg/dL Creatinine (0.5-1.4) mg/dL Estim Creat Clear Calc Estimated GFR Random Glucose (60-115) mg/dL Lactic Acid (0.5-2.0) mmol/L Calcium (8.4-10.2) mg/dL Magnesium (1.6-2.6) mg/dL Total Bilirubin (0.0-1.0) mg/dL Direct Bilirubin (0.0-0.5) mg/dL AST (5-37) U/L ALT (0-40) U/L Alkaline Phosphatase (39-117) U/L Total Creatine Kinase (38-174) U/L Troponin I High Sens (<3.5-35.0) ng/L Total Protein (6.5-8.0) g/dL Albumin (3.5-5.0) g/dL Lipase (8-78) U/L Procalcitonin 0.18 ng/mL COVID-19 (PRIYA) (Negative) COVID-19 Clin Com ECG Data ECG #1: Attestation: I personally reviewed and interpreted this ECG as follows: ECG interpretation date: 10/20/21 ECG interpretation time: 11:30 Interpretation: Rate: 126 Rhythm: sinus tachycardia [place]: left Normal P waves. Normal ABRAHAM. LBBB ST T wave : nonspecific tall T waves qTC: normal prior studies: prior LBBB 2021 The study has been interpreted contemporaneously by me. . Critical Care Time Critical Care Time Critical Care Time: Yes Total Critical Care Time: 60 Attestation: review of records, correction of O2, oxy mask, IV antibiotics, reassessments Discharge Plan Discharge Clinical Impression: Fever Qualifiers: Fever type: unspecified Qualified Code(s): R50.9 - Fever, unspecified Respiratory failure with hypoxia Qualifiers: Chronicity: acute on chronic Qualified Code(s): J96.21 - Acute and chronic respiratory failure with hypoxia Pneumonia Qualifiers: Pneumonia type: due to unspecified organism Laterality: right Lung location: upper lobe of lung Qualified Code(s): J18.9 - Pneumonia, unspecified organism Patient Disposition: Admitted As Inpatient
[2021-10-20 11:39] LABS: Venous Blood Gas Refer to POC result
[2021-10-20 11:40] LABS: VBG Base Excess 10.8 mmol/L; VBG HCO3 37 mmol/L (22-26); VBG pCO2 61 mmHg; VBG pH 7.39 (7.32-7.43); VBG pO2 43 mmHg
[2021-10-20 11:42] LABS: Basophils Absolute Auto 0.1 X10*3/uL (0.0-0.2); Basophils Percent Auto 0.3 % (0-2); Eosinophils Absolute Auto 0.3 X10*3/uL (0.0-0.4); Eosinophils Percent Auto 2.2 % (0-4); Hematocrit 35.7 % (42.0-52.0); Imm Gran Abs Auto 0.09 X10*3/uL (0.00-0.03); Imm Gran Pct Auto 0.6 % (0.0-0.4); Lymphocytes Absolute Auto 0.9 X10*3/uL (1.2-4.9); Lymphocytes Percent Auto 6.1 % (20-40); MANUAL DIFF FLAG NO; Mean Corpuscular HGB Conc 30.8 g/dl (31.0-36.0); Mean Corpuscular Hemoglobin 28.8 pg (27.0-33.0); Mean Corpuscular Volume 93.5 fL (80.0-98.0); Mean Platelet Volume 10.6 fL (9.4-12.4); Monocytes Percent Auto 6.5 % (2-11); Neutrophils Absolute Auto 12.5 x10*3/uL (2.0-8.3); Neutrophils Percent Auto 84.3 % (45-73); Platelet Count 268 X10*3/uL (160-400); Red Blood Count 3.82 X10*6/uL (4.60-5.80); Red Cell Distribution Width 16.1 % (11.0-16.0); White Blood Count 14.9 X10*3/uL (4.8-10.8)
[2021-10-20] MEDS: Acetaminophen Supp 650 MG SUPP.RECT PR (11:46)
[2021-10-20] MEDS: methylPREDNISolone Sod Succ 125 MG/2 ML VIAL IVPUSH (11:47)
[2021-10-20] MEDS: cefTRIAXone sodium 1 GM in 0.9 % Sodium Chloride 50 ML IV (11:47)
[2021-10-20] MEDS: 0.9 % Sodium Chloride 1,000 ML 999 ML IVCONT (11:50)
[2021-10-20 11:52] LABS: INTERNATIONAL NORM RATIO 1.1 (0.9-1.1); Lactic Acid 1.4 mmol/L (0.5-2.0); Prothrombin Time 12.5 SEC (9.9-13.0)
[2021-10-20 11:58] LABS: COVID-19 Test Negative (Negative); IDNOW Serial# 16C4AD1C
[2021-10-20 12:00] LABS: Troponin-I High Sensitivity 46.5 ng/L (<3.5-35.0)
[2021-10-20 12:02] LABS: Alanine Aminotransferase 15 U/L (0-40); Albumin Level 3.1 g/dL (3.5-5.0); Alkaline Phosphatase 75 U/L (39-117); Anion Gap 13 (12-20); Aspartate Amino Transferase 21 U/L (5-37); Bilirubin Direct 0.3 mg/dL (0.0-0.5); Bilirubin Total 0.4 mg/dL (0.0-1.0); Blood Urea Nitrogen 11 mg/dL (9-16); Calcium 8.9 mg/dL (8.4-10.2); Carbon Dioxide 33 mmol/L (22-29); Chloride 101 mmol/L (96-108); Creatinine Clr Calc Pharmacy 65.6; Estimated Glomerular Filt Rate > 60; Glucose Random 124 mg/dL (60-115); Lipase 4 U/L (8-78); Magnesium 1.8 mg/dL (1.6-2.6); Potassium 4.3 mmol/L (3.3-5.1); Sodium 143 mmol/L (135-145); Total Protein 6.4 g/dL (6.5-8.0)
[2021-10-20 12:18] LABS: Procalcitonin 0.18 ng/mL
[2021-10-20] MEDS: Doxycycline Hyclate 100 MG in 0.9 % Sodium Chloride 250 ML 166.67 MG IV (12:38)
--- NOTE | 2021-10-20 12:39 | PHA.MEDREC ---
Pharmacy Consult ? Medication Reconciliation Pharmacy has completed the medication reconciliation.
--- NOTE | 2021-10-20 13:08 | MHC.CM.ED ---
Received notification from Heidi of registration that patient's HCP is listed as Mady and Gustavo. Mady told Heidi she is not the HCP. Gustavo has . Patient is active with [facility] and [facility]. Morales Martínez can be reached at [phone]. Fazal Felipe can be reached via telephone at [phone].
[2021-10-20] MEDS: Ibuprofen 400 MG TABLET PO (14:41)
--- NOTE | 2021-10-20 14:59 | PC.NURSE ---
pts cognition has improved, pt alert and oriented x3 - requires time to respond and can be forgetful. pt often started to ask for something then forgets what he needed/wanted.
--- NOTE | 2021-10-20 15:13 | PM.IMHP ---
History of Present Illness Date of Service: 10/20/21 Chief Complaint: Altered mentation, hypoxia a 71 years old male with H of COPD, bronchiectasis, and pulmonary fibrosis, on home O2 3L via [place] Who was brought to the hospital for altered mentation and hypoxia..? He is a poor historian but from emergency notes he was found by his HVAC SALES REPRESENTATIVE in altered mentation and hypoxic in 50s. He was brought to the hospital where he was found to have fever associated with hypoxia. Images of the chest were consistent with possible bilateral lower lobe pneumonias. The patient reports feeling chills and having subjective fever with associated cough and shortness of breath. No headache, no chest pain, no change in bowel habit or urinary symptoms. Will be admitted for further evaluation and treatment. Review of Systems Review of Systems: reporting subjective fever and chills No chest pain, palpitation having baseline shortness of breath and coughing No abdominal pain, nausea or vomiting No urinary symptoms No any rash or wounds PMFSH Medical History Arthritis Bronchiectasis COPD (chronic obstructive pulmonary disease) Coronary artery disease Depression GERD (gastroesophageal reflux disease) Hypertension Left bundle branch block Pulmonary fibrosis Social History Patient Tobacco Use Status: Former Tobacco user Use of substances other than those prescribed or required for medical reasons: No Advance Directives: Yes Advance Directives on File: Yes Advance Directives Date on File: 08/24/21 service: No Current occupational status: retired Meds Allergies Allergy/AdvReac Type Severity Reaction Status Date / Time hydromorphone [From Dilaudid] Allergy Intermediate hallucinati Verified 08/24/21 14:18 on Active Medications: Current Medications Acetaminophen (Acetaminophen 325 Mg Tablet) 650 mg PO Q6H PRN PRN Reason: Pain, Mild (Pain Scale 1-3) Albuterol/Ipratropium (Albuterol/Iprat 2.5/0.5mg 3 Ml Ampul.Neb) 3 ml INHALE RQ4H WHILE AWAKE STELLA Aspirin (Aspirin Enteric Coated 81 Mg Tablet.) 81 mg PO DAILY [facility] Atorvastatin Calcium (Atorvastatin Calcium 80 Mg Tablet) 80 mg PO DAILY [facility] Clonazepam (Clonazepam 0.5 Mg Tablet) 0.5 mg PO TID PRN PRN Reason: Anxiety Enoxaparin Sodium (Enoxaparin Sodium 40 Mg/0.4 Ml Syringe) 40 mg SUBCUT Q24H [facility] Famotidine (Famotidine 20 Mg Tablet) 40 mg PO DAILY [facility] Finasteride (Finasteride 5 Mg Tablet) 5 mg PO DAILY [facility] Folic Acid (Folic Acid 1 Mg Tablet) 1 mg PO DAILY [facility] Piperacillin Sod/Tazobactam (Sod 3.375 gm/ Sodium Chloride) 50 mls @ 100 mls/hr IV Q6H [facility] Multivitamins/Vitamin C (Multivitamin Tablet) 1 tab PO DAILY [facility] Ondansetron HCl (Ondansetron Hcl 4 Mg/2 Ml Vial) 4 mg IVPUSH Q8H PRN PRN Reason: Nausea and Vomiting Oxycodone HCl (Oxycodone Hcl Er 10 Mg Tab.Er.12h) 20 mg PO BID [facility] Oxycodone HCl (Oxycodone Hcl Er 10 Mg Tab.Er.12h) 10 mg PO DAILY [facility] Pharmacy Consult (Consult Rx Perform Med Rec) 1 each MISCELLANE ONCE PRN PRN Reason: Consult order Quetiapine Fumarate (Quetiapine Fumarate 25 Mg Tablet) 25 mg PO BEDTIME [facility] Senna/Docusate Sodium (Sennosides/Docusate Sodium Tablet) 1 tab PO DAILY [facility] Sertraline HCl (Sertraline Hcl 100 Mg Tablet) 100 mg PO DAILY [facility] Sodium Chloride (0.9 % Sodium Chloride Flush 3 Ml Syringe) 3 ml IVFLUSH QSHIFT [facility] Vitamin D (Cholecalciferol (Vitamin D3) 25 Mcg Tablet) 25 mcg PO DAILY [facility] Home Medications Medication Instructions Recorded Confirmed Last Taken Type albuterol sulfate 2.5 mg INHALATION QID PRN 08/24/21 10/20/21 Unknown History albuterol sulfate 90 mcg/actuation 90 mcg INHALATION Q4H 08/24/21 10/20/21 Unknown History aerosol inhaler aspirin 81 mg tablet,delayed 1 tab PO DAILY 08/24/21 10/20/21 Unknown History release atorvastatin 80 mg tablet 1 tab PO DAILY 08/24/21 10/20/21 Unknown History cholecalciferol (vitamin D3) 25 25 mcg PO DAILY 08/24/21 10/20/21 Unknown History mcg (1,000 unit) tablet clonazepam 0.5 mg tablet 1 tab PO TID PRN 08/24/21 10/20/21 Unknown History famotidine 40 mg tablet 1 tab PO DAILY 08/24/21 10/20/21 Unknown History finasteride 5 mg tablet 1 tab PO DAILY 08/24/21 10/20/21 Unknown History fluticasone fur. 100 mcg-umeclid 1 puff INHALATION DAILY 08/24/21 10/20/21 Unknown History 62.5 mcg-vilant 25 mcg inhalat.powder (Trelegy Ellipta) folic acid 1 mg tablet 1 tab PO DAILY 08/24/21 10/20/21 Unknown History multivitamin 1 tab PO DAILY 08/24/21 10/20/21 Unknown History ondansetron HCl 4 mg tablet 1 tab PO Q8H PRN 08/24/21 10/20/21 Unknown History oxycodone 10 mg tablet,crush 10 mg PO DAILY 08/24/21 10/20/21 Unknown History resistant,extended release 12 hr (OxyContin) oxycodone 40 mg tablet,crush 1 tab PO BID 08/24/21 10/20/21 Unknown History resistant,extended release 12 hr (OxyContin) quetiapine 100 mg tablet 1 tab PO BEDTIME 08/24/21 10/20/21 Unknown History sennosides 8.6 mg-docusate sodium 1 tab PO DAILY 08/24/21 10/20/21 Unknown History 50 mg tablet (Stimulant Laxative Plus) sertraline 100 mg tablet 1 tab PO DAILY 08/24/21 10/20/21 Unknown History trazodone 100 mg tablet 2 tab PO BEDTIME PRN 08/24/21 10/20/21 Unknown History Physical Exam Vital Signs and Narrative: Vital Signs: Last Vital Signs Temp 101 F H 10/20/21 14:25 Pulse 106 H 10/20/21 14:18 Resp 20 10/20/21 14:18 BP 110/70 10/20/21 14:18 Pulse Ox 95 10/20/21 14:18 Oxygen Flow Rate 10/20/21 11:17 BMI result Body Mass Index 20.4 Const: Other: Constitutional : Alert, interactive, not in distress Neck : Normal inspection, Supple Cardiovascular : RRR, S1 S2, no lower extremity edema Respiratory : decreased bilateral air entry, bilateral scattered wheezes, bilateral basal fine crackles Gastrointestinal: soft, lax, Normal bowel sounds, Non tender Skin : Warm, Dry Neurological : Alert & oriented to self and place but slow in answers, No focal deficit Results Labs CBC and Chem 7: 10/20/21 11:31 10/20/21 11:31 Labs: Laboratory Results - last 24 hr 10/20/21 10/20/21 10/20/21 11:31 11:31 11:31 MCV 93.5 MCH 28.8 MCHC 30.8 L RDW 16.1 H Plt Count 268 MPV 10.6 Immature Gran % (Auto) 0.6 H Neut % (Auto) 84.3 H Lymph % (Auto) 6.1 L [place] % (Auto) 6.5 Eos % (Auto) 2.2 Baso % (Auto) 0.3 Lymph # (Auto) 0.9 L [place] # (Auto) 1.0 Eos # (Auto) 0.3 Baso # (Auto) 0.1 Abs Immat Gran (auto) 0.09 H Absolute Neuts (auto) 12.5 H Absolute Nucleated RBC 0.000 Nucleated RBC % (auto) 0.0 PT INR VBG pH VBG pCO2 VBG pO2 VBG HCO3 VBG O2 Saturation VBG Base Excess Anion Gap 13 Estim Creat Clear Calc 65.6 Estimated GFR > 60 Random Glucose 124 H Lactic Acid Calcium 8.9 Magnesium 1.8 Total Bilirubin 0.4 Direct Bilirubin 0.3 AST 21 ALT 15 Alkaline Phosphatase 75 D Total Creatine Kinase 171 D Total Protein 6.4 L Albumin 3.1 L Lipase 4 L Procalcitonin COVID-19 ([facility]) Negative COVID-19 Clin Com See Note 10/20/21 10/20/21 10/20/21 11:31 11:31 11:31 MCV MCH MCHC RDW Plt Count MPV Immature Gran % (Auto) Neut % (Auto) Lymph % (Auto) [place] % (Auto) Eos % (Auto) Baso % (Auto) Lymph # (Auto) [place] # (Auto) Eos # (Auto) Baso # (Auto) Abs Immat Gran (auto) Absolute Neuts (auto) Absolute Nucleated RBC Nucleated RBC % (auto) PT 12.5 INR 1.1 VBG pH VBG pCO2 VBG pO2 VBG HCO3 VBG O2 Saturation VBG Base Excess Anion Gap Estim Creat Clear Calc Estimated GFR Random Glucose Lactic Acid 1.4 Calcium Magnesium Total Bilirubin Direct Bilirubin AST ALT Alkaline Phosphatase Total Creatine Kinase Total Protein Albumin Lipase Procalcitonin 0.18 COVID-19 ([facility]) COVID-19 Clin Com 10/20/21 11:33 MCV MCH MCHC RDW Plt Count MPV Immature Gran % (Auto) Neut % (Auto) Lymph % (Auto) [place] % (Auto) Eos % (Auto) Baso % (Auto) Lymph # (Auto) [place] # (Auto) Eos # (Auto) Baso # (Auto) Abs Immat Gran (auto) Absolute Neuts (auto) Absolute Nucleated RBC Nucleated RBC % (auto) PT INR VBG pH 7.39 VBG pCO2 61 VBG pO2 43 VBG HCO3 37 H VBG O2 Saturation 66.0 VBG Base Excess 10.8 Anion Gap Estim Creat Clear Calc Estimated GFR Random Glucose Lactic Acid Calcium Magnesium Total Bilirubin Direct Bilirubin AST ALT Alkaline Phosphatase Total Creatine Kinase Total Protein Albumin Lipase Procalcitonin COVID-19 ([facility]) COVID-19 Clin Com Imaging Radiologist's Impressions: Impressions Abdomen/Pelvis CT 10/20/21 12:30 IMPRESSION: No acute findings. Constipation. Atherosclerotic disease. Fleischner guidelines were followed. Cervical Spine CT 10/20/21 12:30 IMPRESSION: No fracture or dislocation. Postsurgical changes at C5-C6 and bony ankylosis at the C5-C6 disc space. Post laminectomy from C2 to C4. Mild posterior subluxation of C3 with respect to C2 and C4. Multilevel degenerative spondylosis and degenerative disc disease. Fleischner guidelines were followed. Chest CT 10/20/21 12:30 IMPRESSION: Volume loss to the right upper lobe, cicatrization bronchiectasis and consolidation. This is similar to August 2021 chest x-ray and may be chronic. Bronchitis and diffuse airways disease throughout the lungs. There may be bronchopneumonia in both lower lobes. Fleischner guidelines were followed. Head CT 10/20/21 12:30 IMPRESSION: No acute intracranial findings. Assessment and Plan (1) Respiratory failure with hypoxia: Qualifiers: Chronicity: acute on chronic Qualified Code(s): J96.21 - Acute and chronic respiratory failure with hypoxia Status: Acute (2) Pneumonia: Qualifiers: Laterality: right Lung location: upper lobe of lung Pneumonia type: due to unspecified organism Qualified Code(s): J18.9 - Pneumonia, unspecified organism Status: Acute (3) Acute on chronic respiratory failure: Status: Acute (4) COPD exacerbation: Status: Acute Plan a 71 years old male with H of COPD, bronchiectasis, and pulmonary fibrosis, on home O2 3L via [place] Who was brought to the hospital for altered mentation and hypoxia.. Acute on chronic hypoxic respiratory failure Secondary to pneumonia, COPD exacerbation Wean oxygen down to home level of 2 L Treat pneumonia with antibiotics Three COPD with steroids and nebulizers Community-acquired pneumonia Risk for aspiration given bilateral presentation Pending blood cultures Start IV Zosyn COPD exacerbation Start steroids IV Duo nebs ATC Albuterol as needed CAD continue ASA + statin chronic pain continue oxycodone, dose decreased for his altered mentation but home dose can be started later depression/mood continue quetiapine, clonazepam, sertraline BPH continue finasteride VTE ppx LMWH Quality Stroke Does the patient have a stroke diagnosis?: No VTE Prior VTE?: No VTE Risk Level:: Medical - moderate - high VTE Device Contraindication: Treatment Not Indicated VTE Drug Contraindication: N/A - Med Ordered
[2021-10-20] MEDS: Albuterol/Iprat 2.5/0.5MG 3 ML AMPUL.NEB INHALE (15:47)
[2021-10-20] MEDS: Enoxaparin Sodium 40 MG/0.4 ML SYRINGE SUBCUT (15:47)
[2021-10-20] MEDS: Piperacillin Sodium/Tazobactam 3.375 GM in 0.9 % Sodium Chloride 50 ML IV ×2 (15:47→21:48)
--- NOTE | 2021-10-20 18:15 | PC.NURSE ---
pt yet to urinate since arrival to the ER at 11am. pt reports he feels like he has to pee a little bit attempted to urinate in urinal standing or sitting on edge of the bed with no result. pt bladder scanned for a total of [address] mays made aware.
[2021-10-20] MEDS: 0.9 % Sodium Chloride Flush 3 ML SYRINGE IVFLUSH ×2 (18:18→21:49)
--- NOTE | 2021-10-20 18:29 | PC.NURSE ---
per Dr. Alexandre - repeat bladder scan to be completed at 2014 and retention to be greater than 600 - message MD at that time if no urine for placement of domingo
[2021-10-20] MEDS: oxyCODONE HCl ER 10 MG TAB.ER.12H 20 MG PO (21:47)
[2021-10-20] MEDS: clonazePAM 0.5 MG TABLET PO (21:48)
[2021-10-20] MEDS: QUEtiapine Fumarate 25 MG TABLET PO (21:48)
[2021-10-21] VITALS (10 sets, daily range): BP systolic 134–179; BP diastolic 66–88; PULSE 69–96; RESP 14–20; TEMP 36.4–36.9; O2SAT 90–98; BMI 20.4
[2021-10-21] MEDS: Piperacillin Sodium/Tazobactam 3.375 GM in 0.9 % Sodium Chloride 50 ML IV ×4 (02:36→20:33)
[2021-10-21 05:54] LABS: Appearance Urine CLEAR; Color Urine YELLOW; Glucose Urine UA 100 MG/DL (NEG); Leukocyte Esterase Urine NEG (NEG); Nitrite Urine NEG (NEG); Specific Gravity - Urine 1.025 (1.005-1.025); Urine Blood NEG (NEG); Urine Ketones 5 MG/DL (NEG); Urine Protein NEG (NEG-TRACE)
[2021-10-21 06:08] LABS: Hematocrit 34.5 % (42.0-52.0); Hemoglobin 10.7 g/dl (14.0-18.0); Mean Corpuscular Hemoglobin 28.6 pg (27.0-33.0); Mean Corpuscular Volume 92.2 fL (80.0-98.0); Mean Platelet Volume 11.3 fL (9.4-12.4); Platelet Count 261 X10*3/uL (160-400); Red Blood Count 3.74 X10*6/uL (4.60-5.80); Red Cell Distribution Width 15.9 % (11.0-16.0); White Blood Count 9.4 X10*3/uL (4.8-10.8)
--- NOTE | 2021-10-21 06:21 | PC.NURSE ---
pt did not void overnight, bladder scanned him at [address] Garcia made aware and ordered a domingo catheter to be placed. Domingo placed around 0500.
[2021-10-21 06:29] LABS: Anion Gap 14 (12-20); Blood Urea Nitrogen 18 mg/dL (9-16); Calcium 9.3 mg/dL (8.4-10.2); Carbon Dioxide 30 mmol/L (22-29); Chloride 105 mmol/L (96-108); Creatinine Clr Calc Pharmacy 67.7; Estimated Glomerular Filt Rate > 60; Glucose Random 143 mg/dL (60-115); Potassium 4.6 mmol/L (3.3-5.1); Sodium 144 mmol/L (135-145)
[2021-10-21] MEDS: Albuterol/Iprat 2.5/0.5MG 3 ML AMPUL.NEB INHALE ×4 (08:32→20:09)
[2021-10-21] MEDS: Atorvastatin Calcium 80 MG TABLET PO (09:04)
[2021-10-21] MEDS: Famotidine 20 MG TABLET 40 MG PO (09:04)
[2021-10-21] MEDS: Aspirin Enteric Coated 81 MG TABLET.DR PO (09:04)
[2021-10-21] MEDS: Multivitamin TABLET 1 TAB PO (09:04)
[2021-10-21] MEDS: Sertraline HCL 100 MG TABLET PO (09:04)
[2021-10-21] MEDS: Folic Acid 1 MG TABLET PO (09:04)
[2021-10-21] MEDS: Finasteride 5 MG TABLET PO (09:04)
[2021-10-21] MEDS: oxyCODONE HCl ER 10 MG TAB.ER.12H 20 MG PO ×2 (09:05→20:32)
[2021-10-21] MEDS: Cholecalciferol (Vitamin D3) 25 MCG TABLET PO (09:05)
[2021-10-21] MEDS: methylPREDNISolone Sod Succ 40 MG/ML VIAL IVPUSH ×2 (09:05→20:32)
[2021-10-21] MEDS: oxyCODONE HCl ER 10 MG TAB.ER.12H PO (09:05)
[2021-10-21] MEDS: 0.9 % Sodium Chloride Flush 3 ML SYRINGE IVFLUSH ×3 (09:06→20:37)
[2021-10-21] MEDS: Sennosides/Docusate Sodium TABLET 1 TAB PO (09:06)
--- NOTE | 2021-10-21 10:06 | HO.PM.IMPN ---
Subjective Subjective Date of Service: 10/21/21 Interval History: cc: ams, hypoxia interval history: feeling much better today Cardiovascular Cardiovascular: Reports no additional cardiovascular complaints Respiratory Respiratory: Reports no additional respiratory complaints Physical Exam Vital Signs: Vital Signs: Last Vital Signs Temp 97.5 F 10/21/21 07:13 Pulse 96 10/21/21 08:36 Resp 20 10/21/21 08:36 BP 138/72 10/21/21 07:13 Pulse Ox 98 10/21/21 07:13 Oxygen Flow Rate 15 10/20/21 11:17 BMI result Body Mass Index 20.4 General: AO X 3, frail, ambulating with walker Resp: diminished bilateral, with wheezes, mild accessory muscles used CVS: S1,S2,RRR GI: soft, non tender, non distended Neuro: motor grossly intact, alert Psych: appropriate affect, appropriate insight Objective Data Active Medications Acetaminophen (Acetaminophen 325 Mg Tablet) 650 mg PO Q6H PRN PRN Reason: Pain, Mild (Pain Scale 1-3) Albuterol/Ipratropium (Albuterol/Iprat 2.5/0.5mg 3 Ml Ampul.Neb) 3 ml INHALE RQ4H WHILE AWAKE [facility] Last Admin: 10/21/21 08:32 Dose: 3 ml Documented by: CHACHO Aspirin (Aspirin Enteric Coated 81 Mg Tablet.) 81 mg PO DAILY [facility] Last Admin: 10/21/21 09:04 Dose: 81 mg Documented by: ELIF Atorvastatin Calcium (Atorvastatin Calcium 80 Mg Tablet) 80 mg PO DAILY [facility] Last Admin: 10/21/21 09:04 Dose: 80 mg Documented by: ELIF Clonazepam (Clonazepam 0.5 Mg Tablet) 0.5 mg PO TID PRN PRN Reason: Anxiety Last Admin: 10/20/21 21:48 Dose: 0.5 mg Documented by: BRITTNI Enoxaparin Sodium (Enoxaparin Sodium 40 Mg/0.4 Ml Syringe) 40 mg SUBCUT Q24H [facility] Last Admin: 10/20/21 15:47 Dose: 40 mg Documented by: ERICKA Famotidine (Famotidine 20 Mg Tablet) 40 mg PO DAILY [facility] Last Admin: 10/21/21 09:04 Dose: 40 mg Documented by: ELIF Finasteride (Finasteride 5 Mg Tablet) 5 mg PO DAILY [facility] Last Admin: 10/21/21 09:04 Dose: 5 mg Documented by: ELIF Folic Acid (Folic Acid 1 Mg Tablet) 1 mg PO DAILY [facility] Last Admin: 10/21/21 09:04 Dose: 1 mg Documented by: ELIF Piperacillin Sod/Tazobactam (Sod 3.375 gm/ Sodium Chloride) 50 mls @ 100 mls/hr IV Q6H [facility] Last Infusion: 10/21/21 10:00 Dose: 0 mls/hr Documented by: ELIF Methylprednisolone Sodium Succinate (Methylprednisolone Sod Succ 40 Mg/Ml Vial) 40 mg IVPUSH Q12H [facility] Last Admin: 10/21/21 09:05 Dose: 40 mg Documented by: ELIF Multivitamins/Vitamin C (Multivitamin Tablet) 1 tab PO DAILY [facility] Last Admin: 10/21/21 09:04 Dose: 1 tab Documented by: ELIF Ondansetron HCl (Ondansetron Hcl 4 Mg/2 Ml Vial) 4 mg IVPUSH Q8H PRN PRN Reason: Nausea and Vomiting Oxycodone HCl (Oxycodone Hcl Er 10 Mg Tab.Er.12h) 20 mg PO BID [facility] Last Admin: 10/21/21 09:05 Dose: 20 mg Documented by: ELIF Oxycodone HCl (Oxycodone Hcl Er 10 Mg Tab.Er.12h) 10 mg PO DAILY [facility] Last Admin: 10/21/21 09:05 Dose: 10 mg Documented by: ELIF Pharmacy Consult (Consult Rx Perform Med Rec) 1 each MISCELLANE ONCE PRN PRN Reason: Consult order Quetiapine Fumarate (Quetiapine Fumarate 25 Mg Tablet) 25 mg PO BEDTIME [facility] Last Admin: 10/20/21 21:48 Dose: 25 mg Documented by: JERMAINQC Senna/Docusate Sodium (Sennosides/Docusate Sodium Tablet) 1 tab PO DAILY [facility] Last Admin: 10/21/21 09:06 Dose: 1 tab Documented by: ELIF Sertraline HCl (Sertraline Hcl 100 Mg Tablet) 100 mg PO DAILY [facility] Last Admin: 10/21/21 09:04 Dose: 100 mg Documented by: ELIF Sodium Chloride (0.9 % Sodium Chloride Flush 3 Ml Syringe) 3 ml IVFLUSH QSHIFT [facility] Last Admin: 10/21/21 09:06 Dose: 3 ml Documented by: ELIF Vitamin D (Cholecalciferol (Vitamin D3) 25 Mcg Tablet) 25 mcg PO DAILY [facility] Last Admin: 10/21/21 09:05 Dose: 25 mcg Documented by: ELIF Labs CBC & Chem 7: 10/21/21 05:23 10/21/21 05:23 Labs: Laboratory Results - last 24 hr 10/20/21 10/20/21 10/20/21 11:31 11:31 11:31 MCV 93.5 MCH 28.8 MCHC 30.8 L RDW 16.1 H Plt Count 268 MPV 10.6 Immature Gran % (Auto) 0.6 H Neut % (Auto) 84.3 H Lymph % (Auto) 6.1 L Kendall % (Auto) 6.5 Eos % (Auto) 2.2 Baso % (Auto) 0.3 Lymph # (Auto) 0.9 L Kendall # (Auto) 1.0 Eos # (Auto) 0.3 Baso # (Auto) 0.1 Abs Immat Gran (auto) 0.09 H Absolute Neuts (auto) 12.5 H Absolute Nucleated RBC 0.000 Nucleated RBC % (auto) 0.0 PT INR VBG pH VBG pCO2 VBG pO2 VBG HCO3 VBG O2 Saturation VBG Base Excess Anion Gap 13 Estim Creat Clear Calc 65.6 Estimated GFR > 60 Random Glucose 124 H Lactic Acid Calcium 8.9 Magnesium 1.8 Total Bilirubin 0.4 Direct Bilirubin 0.3 AST 21 ALT 15 Alkaline Phosphatase 75 D Total Creatine Kinase 171 D Total Protein 6.4 L Albumin 3.1 L Lipase 4 L Procalcitonin Urine Color Urine Appearance Urine pH Ur Specific Fraser Urine Protein Urine Glucose (UA) Urine Ketones Urine Blood Urine Nitrite Ur Leukocyte Esterase COVID-19 (PRIYA) Negative COVID-19 Clin Com See Note 10/20/21 10/20/21 10/20/21 11:31 11:31 11:31 MCV MCH MCHC RDW Plt Count MPV Immature Gran % (Auto) Neut % (Auto) Lymph % (Auto) Kendall % (Auto) Eos % (Auto) Baso % (Auto) Lymph # (Auto) Kendall # (Auto) Eos # (Auto) Baso # (Auto) Abs Immat Gran (auto) Absolute Neuts (auto) Absolute Nucleated RBC Nucleated RBC % (auto) PT 12.5 INR 1.1 VBG pH VBG pCO2 VBG pO2 VBG HCO3 VBG O2 Saturation VBG Base Excess Anion Gap Estim Creat Clear Calc Estimated GFR Random Glucose Lactic Acid 1.4 Calcium Magnesium Total Bilirubin Direct Bilirubin AST ALT Alkaline Phosphatase Total Creatine Kinase Total Protein Albumin Lipase Procalcitonin 0.18 Urine Color Urine Appearance Urine pH Ur Specific Fraser Urine Protein Urine Glucose (UA) Urine Ketones Urine Blood Urine Nitrite Ur Leukocyte Esterase COVID-19 (PRIYA) COVID-19 Clin Com 10/20/21 10/21/21 10/21/21 11:33 05:23 05:23 MCV 92.2 MCH 28.6 MCHC 31.0 RDW 15.9 Plt Count 261 MPV 11.3 Immature Gran % (Auto) Neut % (Auto) Lymph % (Auto) Kendall % (Auto) Eos % (Auto) Baso % (Auto) Lymph # (Auto) Kendall # (Auto) Eos # (Auto) Baso # (Auto) Abs Immat Gran (auto) Absolute Neuts (auto) Absolute Nucleated RBC 0.000 Nucleated RBC % (auto) 0.0 PT INR VBG pH 7.39 VBG pCO2 61 VBG pO2 43 VBG HCO3 37 H VBG O2 Saturation 66.0 VBG Base Excess 10.8 Anion Gap 14 Estim Creat Clear Calc 67.7 Estimated GFR > 60 Random Glucose 143 H Lactic Acid Calcium 9.3 Magnesium Total Bilirubin Direct Bilirubin AST ALT Alkaline Phosphatase Total Creatine Kinase Total Protein Albumin Lipase Procalcitonin Urine Color Urine Appearance Urine pH Ur Specific Fraser Urine Protein Urine Glucose (UA) Urine Ketones Urine Blood Urine Nitrite Ur Leukocyte Esterase COVID-19 (PRIYA) COVID-19 Clin Com 10/21/21 05:33 MCV MCH MCHC RDW Plt Count MPV Immature Gran % (Auto) Neut % (Auto) Lymph % (Auto) Kendall % (Auto) Eos % (Auto) Baso % (Auto) Lymph # (Auto) Kendall # (Auto) Eos # (Auto) Baso # (Auto) Abs Immat Gran (auto) Absolute Neuts (auto) Absolute Nucleated RBC Nucleated RBC % (auto) PT INR VBG pH VBG pCO2 VBG pO2 VBG HCO3 VBG O2 Saturation VBG Base Excess Anion Gap Estim Creat Clear Calc Estimated GFR Random Glucose Lactic Acid Calcium Magnesium Total Bilirubin Direct Bilirubin AST ALT Alkaline Phosphatase Total Creatine Kinase Total Protein Albumin Lipase Procalcitonin Urine Color YELLOW Urine Appearance CLEAR Urine pH 6.0 Ur Specific Fraser 1.025 Urine Protein NEG Urine Glucose (UA) 100 H Urine Ketones 5 Urine Blood NEG Urine Nitrite NEG Ur Leukocyte Esterase NEG COVID-19 (PRIYA) COVID-19 Clin Com Microbiology Microbiology Results: Microbiology 10/20/21 11:31 Blood Culture - Preliminary Blood - Venous Assessment and Plan (1) Acute on chronic respiratory failure: Status: Acute Plan 71M presented with ams and sob sepsis present on admission, toxic-metabolic encephalopathy, and acute on chronic hyopxic respiratory failured due to bacterial pneumonia and copd and ILD with acute decompensation mental status much improved, back to baseline o2 - 3L sob improved continue steroids, bronchodilators ,zosyn follow up cultures CAD asa, statin chronic pain holding opiates for encephalopathy mood disorded continue seroquel, klonipin, sertraline bph finasteride dvt prophylaxis with lovenox full code reason for continued hospitalization: patient septic <24hrs ago, awaiting evidence of full defervescence prior to changing abx to po and discharge, as patient is high risk for progression to severe sepsis due to comorbidities of copd, cad Quality Stroke Does the patient have a stroke diagnosis?: No VTE Prior VTE?: No VTE Risk Level:: Medical - moderate - high VTE Device Contraindication: Treatment Not Indicated VTE Drug Contraindication: N/A - Med Ordered
--- NOTE | 2021-10-21 13:41 | MHC.CM.PN ---
Addendum entered by Suly Dove RN 10/21/21 15:12: CM SPOKE W/PT'S VNA YUNIOR WHO ALSO REPORTED PT IS ON HOME O2 3L NC CONTINUOUS W/APRIA Original Note: EMR REVIEWED, PT ADMITTED W/PNA,SOB AND AMS, PT CLEARING AND WAS ABLE TO ANSWER MOST QUESTIONS, PT DID COME IN W/MED LIST W/VNA CONTACT INFO AND OTHER INFO, REFERRAL PLACED TO [facility] FOR RESUMP BY ED CM, THIS CM MET W/PT WHO REPORTS HE LIVES ALONE, HAS ASSISTANCE W/CARE/CLEANING/ERRANDS BY HIS PCP M-F 8/HRS DAILY AND BID VNA FOR LARGE ENGINE ASSEMBLER, PT REPORTS HE HAS A CANE, WALKER, W/C FOR DISTANCES, SHOWER BENCH AND GRAB BARS IN , PT REPORTS HE PREFERS TO GO HOME W/RSUMP OF SERVICES AND REPORTS HE WILL DECLINE STR. PT REPORTS HE IS FULLY VACCINATED AGAINST COVID HOWEVER DOESN'T HAVE CARD OR INFO W/HIM, PT DOES NOT RECALL THE NAME OF HIS PCP, THIS CM WILL CONTACT PT'S VNA FOR INFO. PT DOES REPORT HE HAS A HCP AND THAT IT IS HIS SISTER EMRE LOPEZ [phone]. D/C PLAN: HOME W/RESUMP OF BID [facility]NA AND M-F [employer]OR [employer] NURSING, PT REPORTS HE CAN ARRANGE TRANSPORT. [facility]TE [place] [phone]
[2021-10-21] MEDS: Enoxaparin Sodium 40 MG/0.4 ML SYRINGE SUBCUT (14:36)
[2021-10-21] MEDS: QUEtiapine Fumarate 25 MG TABLET PO (20:32)
[2021-10-21] MEDS: clonazePAM 0.5 MG TABLET PO (20:32)
[2021-10-21] MEDS: Acetaminophen 325 MG TABLET 650 MG PO (23:58)
[2021-10-22] MEDS: clonazePAM 0.5 MG TABLET PO ×2 (02:55→10:28)
[2021-10-22] MEDS: Piperacillin Sodium/Tazobactam 3.375 GM in 0.9 % Sodium Chloride 50 ML IV ×2 (02:58→07:53)
[2021-10-22] MEDS: oxyCODONE HCl Immed Release 5 MG TABLET PO (03:26)
[2021-10-22 03:44] VITALS: BP 150/79; PULSE 90; RESP 14; TEMP 35.8; O2SAT 94
[2021-10-22] MEDS: Morphine Sulfate 2 MG/ML CARTRIDGE 1 MG IVPUSH (05:29)
[2021-10-22 05:54] LABS: Hematocrit 31.8 % (42.0-52.0); Mean Corpuscular HGB Conc 31.4 g/dl (31.0-36.0); Mean Corpuscular Hemoglobin 28.4 pg (27.0-33.0); Mean Corpuscular Volume 90.3 fL (80.0-98.0); Mean Platelet Volume 10.7 fL (9.4-12.4); Platelet Count 273 X10*3/uL (160-400); Red Blood Count 3.52 X10*6/uL (4.60-5.80); Red Cell Distribution Width 15.9 % (11.0-16.0); White Blood Count 10.9 X10*3/uL (4.8-10.8)
[2021-10-22 06:16] LABS: Anion Gap 12 (12-20); Blood Urea Nitrogen 18 mg/dL (9-16); Carbon Dioxide 30 mmol/L (22-29); Chloride 106 mmol/L (96-108); Creatinine Clr Calc Pharmacy 74.4; Estimated Glomerular Filt Rate > 60; Glucose Fasting 117 mg/dL (60-99); Potassium 4.1 mmol/L (3.3-5.1); Sodium 144 mmol/L (135-145)
[2021-10-22 07:16] VITALS: BP 168/90; PULSE 89; RESP 19; TEMP 36.4; O2SAT 94
[2021-10-22] MEDS: Albuterol/Iprat 2.5/0.5MG 3 ML AMPUL.NEB INHALE ×2 (07:17→12:52)
[2021-10-22] MEDS: 0.9 % Sodium Chloride Flush 3 ML SYRINGE IVFLUSH (07:18)
[2021-10-22] MEDS: Finasteride 5 MG TABLET PO (07:52)
[2021-10-22] MEDS: Sertraline HCL 100 MG TABLET PO (07:52)
[2021-10-22] MEDS: Folic Acid 1 MG TABLET PO (07:52)
[2021-10-22] MEDS: Atorvastatin Calcium 80 MG TABLET PO (07:52)
[2021-10-22] MEDS: methylPREDNISolone Sod Succ 40 MG/ML VIAL IVPUSH (07:52)
[2021-10-22] MEDS: Famotidine 20 MG TABLET 40 MG PO (07:52)
[2021-10-22] MEDS: Sennosides/Docusate Sodium TABLET 1 TAB PO (07:52)
[2021-10-22] MEDS: Cholecalciferol (Vitamin D3) 25 MCG TABLET PO (07:53)
[2021-10-22] MEDS: Multivitamin TABLET 1 TAB PO (07:53)
[2021-10-22] MEDS: oxyCODONE HCl ER 10 MG TAB.ER.12H PO (07:53)
[2021-10-22] MEDS: Aspirin Enteric Coated 81 MG TABLET.DR PO (07:53)
[2021-10-22] MEDS: oxyCODONE HCl ER 10 MG TAB.ER.12H 20 MG PO ×2 (07:53→13:58)
--- NOTE | 2021-10-22 09:50 | PM.DS ---
DS: Providers Provider Date of Service: 10/22/21 Date of admission: 10/20/21 15:02 Primary care physician: Unknown Physician DS: Diagnosis Discharge Diagnosis (1) Acute on chronic respiratory failure: Status: Acute (2) Pneumonia: Status: Acute (3) COPD exacerbation: Status: Acute (4) Toxic metabolic encephalopathy: Status: Acute (5) Sepsis: Status: Acute DS: Summary Hospital Course Hospital Course: Admission note HPI ?a 71 years old male with H of COPD, bronchiectasis, and pulmonary fibrosis, on home O2 3L via NC? Who was brought to the hospital for altered mentation and hypoxia..?? 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 He was brought to the hospital where he was found to have fever associated with hypoxia.? Images of the chest were consistent with possible bilateral lower lobe pneumonias. The patient reports feeling chills and having subjective fever with associated cough and shortness of breath.? No headache, no chest pain, no change in bowel habit or urinary symptoms.? Will be admitted for further evaluation and treatment. Hospital course The patient was admitted to the hospital for evaluation of acute on chronic hypoxic respiratory failure associated with altered mentation with evidence of sepsis at time of admission. Images were consistent with infiltrates suggestive of pancreatitis given his history of COPD and ILD. Treated with IV steroids, IV Zosyn and bronchodilators with good response over the course of hospital stay as his mentation improved back to baseline and his oxygen requirement wean down to his baseline 2 L all the time. Blood cultures remain negative during the hospital stay. Team who recommended home PT evaluated by physical therapy team who recommended home PT. To be discharged home on Augmentin and prednisone to follow-up with PCP as scheduled. Time Spent with Patient Time attestation: Total time spent providing and/or coordinating discharge services: Discharge coordination time: Greater than 30 minutes Quality: Stroke Does the patient have a stroke diagnosis?: No Physical Exam Vital Signs: Vital Signs: Last Vital Signs Temp 97.5 F 10/22/21 07:16 Pulse 89 10/22/21 07:16 Resp 19 10/22/21 07:16 BP 168/90 H 10/22/21 07:16 Pulse Ox 94 10/22/21 07:16 Oxygen Flow Rate 15 10/20/21 11:17 BMI result Body Mass Index 20.4 Const: Other: Constitutional : Alert, interactive, not in distress Neck : Normal inspection, Supple Cardiovascular : RRR, S1 S2, no lower extremity edema Respiratory : Fair bilateral air entry, no more wheezes, bilateral basal fine crackles Gastrointestinal: soft, lax, Normal bowel sounds, Non tender Skin : Warm, Dry Neurological : Alert & oriented tox3, No focal deficit DS: Data Data Completed and Pending Completed studies during hospitalization [Text1]: Procedures Introduction of Remdesivir Anti-infective into Peripheral Vein, Percutaneous Approach, [employer] 5 (08/24/21) Labs on day of discharge: Laboratory Results - last 24 hr 10/22/21 10/22/21 05:23 05:23 WBC 10.9 H RBC 3.52 L Hgb 10.0 L Hct 31.8 L MCV 90.3 MCH 28.4 MCHC 31.4 RDW 15.9 Plt Count 273 MPV 10.7 Absolute Nucleated RBC 0.000 Nucleated RBC % (auto) 0.0 Sodium 144 Potassium 4.1 Chloride 106 Carbon Dioxide 30 H Anion Gap 12 BUN 18 H Creatinine 0.82 Estim Creat Clear Calc 74.4 Estimated GFR > 60 Fasting Glucose 117 H Calcium 9.0 Preliminary micro results at discharge 10/20/21 11:31 Blood Culture - Preliminary Blood - Venous No growth after 24 hours. 10/20/21 11:41 Blood Culture - Preliminary Blood - Venous No growth after 24 hours. Discharge Plan Discharge Patient Disposition: Home Health Service Discharge Diagnosis: Altered mental status Pneumonia COPD exacerbation Referrals: [facility] [Outside] - 1 Day (RESUMPTION OF SERVICES) Physician,Unknown J [Primary Care Provider] - 1 Week Discharge Medications: New prednisone 20 mg tablet 40 mg PO DAILY Qty: 6 0RF amoxicillin-pot clavulanate 875-125 mg tablet 1 tab PO BID Qty: 10 0RF Continued multivitamin Tablet 1 tab PO DAILY 0RF atorvastatin 80 mg tablet 1 tab PO DAILY 0RF albuterol sulfate 2.5 mg /3 mL (0.083 %) solution for nebulization 2.5 mg inhalation QID PRN (Reason: Wheezing) 0RF ondansetron HCl 4 mg tablet 1 tab PO Q8H PRN (Reason: Nausea) 0RF famotidine 40 mg tablet 1 tab PO DAILY 0RF clonazepam 0.5 mg tablet 1 tab PO TID PRN (Reason: Anxiety) 0RF sennosides-docusate sodium [Stimulant Laxative Plus] 8.6-50 mg tablet 1 tab PO DAILY 0RF sertraline 100 mg tablet 1 tab PO DAILY 0RF aspirin 81 mg tablet,delayed release (DR/EC) 1 tab PO DAILY 0RF quetiapine 100 mg tablet 1 tab PO BEDTIME 0RF folic acid 1 mg tablet 1 tab PO DAILY 0RF albuterol sulfate 90 mcg/actuation HFA aerosol inhaler 90 mcg inhalation Q4H 0RF finasteride 5 mg tablet 1 tab PO DAILY 0RF oxycodone [OxyContin] 10 mg tablet,oral only,ext.rel.12 hr 10 mg PO DAILY 0RF oxycodone [OxyContin] 40 mg tablet,oral only,ext.rel.12 hr 1 tab PO BID 0RF Trelegy Ellipta 100-62.5-25 mcg blister with device 1 puff inhalation DAILY 0RF trazodone 100 mg tablet 2 tab PO BEDTIME PRN (Reason: Insomnia) 0RF cholecalciferol (vitamin D3) 25 mcg (1,000 unit) Tablet 25 mcg PO DAILY 0RF Discharge Orders: Discharge Order (Routine); Ordered 10/22/21 Ordered By: Camelia Alexandre Diet: advance to usual diet Activity on Discharge: As tolerated Stand Alone Forms: Patient Portal Discharge page Care Plan Goals: Read below Health Concerns: Read below Plan of Treatment: Read below Assessment: You were admitted to the hospital for evaluation of altered mentation. Found to have low oxygen level requiring oxygen supplement and treatment with IV antibiotics and steroids for evidence of pneumonia and COPD exacerbation with good response over the hospital stay. continue prednisone for 3 more days Continue Augmentin for 5 more days to follow-up with PCP as scheduled
--- NOTE | 2021-10-22 11:42 | W.MHC.F2F ---
Service Date Service Date: 10/22/21 Encounter Date of encounter: 10/22/21 Reasons for Services Signs and symptoms assessed: PHysical deconditioning Reason for retirement: medication treatment and teach disease management Reason for physical therapy: home safety and mobility and therapeutic exercises Homebound: Leaving the home is medically contraindicated at this time without the asist of a device and/or another person due th the listed conditions above and below. Reason homebound: unsteady gait / fall risk Certification: Based on the above findings, I certify that this patient is confined to the home and needs intermittent retirement care, physical therapy and/or speech therapy, or continues to need occupational therapy. The patient is under my care, and I have initiated the establishment of the plan of care. The patient will be followed by a physician who will periodically review the plan of care.
[2021-10-22 11:57] VITALS: BP 161/82; PULSE 92; RESP 20; TEMP 36.9; O2SAT 93
--- NOTE | 2021-10-22 12:18 | MHC.CM.PN ---
PT MEDICALLY CLEARED FOR D/C HOME W/RESUMP OF [facility] B[facility] VNA, M-F ACUTE CARE NURSE AND HOME O2 AT 3L NC CONTINUOUS W/APRIA, ACTION FOR BLS TRANSPORT W/DIRECTIONS TO HOOK PT UP TO CONCENTRATOR ONCE HOME AND TURN MACHINE ON D/T PT NOT BEING ABLE TO DO ON HIS OWN, THIS CM SPOKE W/PT'S NURSE YUNIOR WHO REPORTS SHE WILL BE THERE AT 6PM TO SEE PT AND GIVE HIM HIS MEDS. NSG, UNIT AND HOSPITALIST AWARE.
--- NOTE | 2021-10-22 12:50 | MHC.CM.PN ---
Addendum entered by Suly Dove RN 10/22/21 14:11: [facility] WILL PROVIDE HOME PT FOR PT. Original Note: CM APPROACHED PT ABOUT COMPLETING A NEW HCP HOWEVER PT GIVING CM MULTIPLE EXCUSES AND CLAIMING HE DOES NOT KNOW HIS DTR'S LAST NAME, PT DECLINES TO COMPLETE NEW HCP DURING THIS ADMISSION.
[2021-10-22 13:01] VITALS: PULSE 92; RESP 18; O2SAT 98
--- NOTE | 2021-10-22 13:55 | P.F2F_ITS ---
Service Date Service Date: 10/22/21 Encounter Date of encounter: 10/22/21 Reasons for Services Signs and symptoms assessed: Dyspnea, physical deconditioning Reason for residential: teach disease management Reason for physical therapy: home safety and mobility and therapeutic exercises Homebound: Leaving the home is medically contraindicated at this time without the asist of a device and/or another person due th the listed conditions above and below. Reason homebound: unsteady gait / fall risk Certification: Based on the above findings, I certify that this patient is confined to the home and needs intermittent residential care, physical therapy and/or speech therapy, or continues to need occupational therapy. The patient is under my care, and I have initiated the establishment of the plan of care. The patient will be followed by a physician who will periodically review the plan of care.
[2021-10-22] MEDS: QUEtiapine Fumarate 25 MG TABLET PO (13:58)
== END 2021-10-22 15:03 | disposition home health service (06) | DRG 871 ==
LOC: HO.ED 13:52 → HO.EDOVER 15:24 → HO.S3 19:34
PROVIDERS: Internal Medicine; Admitting Provider Student in an Organized Health Care Education/Training Program; Emergency Provider Emergency Medicine; PCP Internal Medicine Geriatric Medicine; Visit Provider Student in an Organized Health Care Education/Training Program
DX: A41.9 Sepsis, unspecified organism (principal); J18.9 Pneumonia, unspecified organism; J96.21 Acute and chronic respiratory failure with hypoxia; G92.8 Other toxic encephalopathy; J44.0 Chronic obstructive pulmonary disease with (acute) lower respiratory infection; J44.1 Chronic obstructive pulmonary disease with (acute) exacerbation; I25.10 Atherosclerotic heart disease of native coronary artery without angina pectoris; N40.0 Benign prostatic hyperplasia without lower urinary tract symptoms; G89.29 Other chronic pain; Z20.822 Contact with and (suspected) exposure to COVID-19; Z99.81 Dependence on supplemental oxygen; Z87.891 Personal history of nicotine dependence; Z91.19 Patient's noncompliance with other medical treatment and regimen; Z79.82 Long term (current) use of aspirin; Z79.891 Long term (current) use of opiate analgesic; Z79.899 Other long term (current) drug therapy
CPT/HCPCS: 36415; 70450; 71250; 72125; 74176; 80048; 80076; 81003; 82550; 82803; 83605; 83690; 83735; 84145; 84484; 85025; 85027; 85610; 87040; 87635; 93005; 94640; 96365; 96367; 96375; 97162; 99285; 99291; C1758; J0696; J1650; J2270; J2543; J2920; J2930

== ENCOUNTER 2021-11-02 13:55 | Emergency (ER) | payer OTHER, SELFPAY ==
--- NOTE | ~2021-11-02 | XR_ITS ---
EXAMINATION: XR CHEST CLINICAL INFORMATION: Weakness. Shortness of breath. COMPARISON: Chest x-ray 08/24/2021. CT chest 10/20/2021 TECHNIQUE: Frontal portable view of the chest was obtained. 1440 hours FINDINGS: Redemonstration of volume loss in the right upper lobe with shift of midline structures toward the right in the superior mediastinum. Chronic increased interstitial lung markings in lungs bilateral similar prior exam of 08/24/2021. No acute airspace disease. No pleural effusion. No pneumothorax. Heart size is normal. Cardiac and mediastinal contours unchanged. Multilevel degenerative spondylosis spine. XR/XR chest 1V IMPRESSION: Chronic changes of volume loss right upper lobe and chronic increased interstitial lung markings. No acute abnormality of chest.
[2021-11-02 14:12] VITALS: BP 140/80; BP 145/68; PULSE 72; PULSE 90; RESP 16; TEMP 36.1; O2SAT 85; BMI 21.6
--- NOTE | 2021-11-02 14:13 | ECG_ITS ---
Test Reason : weakness Blood Pressure : / mmHG Vent. Rate : 074 BPM Atrial Rate : 074 BPM P-R Int : 230 ms QRS Dur : 152 ms QT Int : 448 ms P-R-T Axes : 068 022 105 degrees QTc Int : 497 ms Sinus rhythm with 1st degree A-V block Left bundle branch block Abnormal ECG When compared with ECG of 20-OCT-2021 11:21, No significant changes seen Referred By: Caro Decker Electronically Signed By:FELICIA GODFREY
--- NOTE | 2021-11-02 14:22 | ED.WEAKNESS ---
HPI - Weakness General Chief complaint: Weakness Stated complaint: WEAKNESS Time Seen by Provider: 11/02/21 14:07 Source: patient and EMS Mode of arrival: EMS Limitations: altered mental status History of Present Illness HPI Narrative: 71 yo male of COPD, bronchiectasis, and pulmonary fibrosis, on home O2 3L via NC, CAD, depression, GERD, HTN here with complaints of lethargy. EMS was called by a home health aide for lethargy. Patient unable to provide much information to me. Related Data Home Medications Medication Instructions Recorded Confirmed albuterol sulfate 2.5 mg INHALATION QID PRN 08/24/21 10/20/21 albuterol sulfate 90 mcg/actuation 90 mcg INHALATION Q4H 08/24/21 10/20/21 aerosol inhaler aspirin 81 mg tablet,delayed 1 tab PO DAILY 08/24/21 10/20/21 release atorvastatin 80 mg tablet 1 tab PO DAILY 08/24/21 10/20/21 cholecalciferol (vitamin D3) 25 25 mcg PO DAILY 08/24/21 10/20/21 mcg (1,000 unit) tablet clonazepam 0.5 mg tablet 1 tab PO TID PRN 08/24/21 10/20/21 famotidine 40 mg tablet 1 tab PO DAILY 08/24/21 10/20/21 finasteride 5 mg tablet 1 tab PO DAILY 08/24/21 10/20/21 fluticasone fur. 100 mcg-umeclid 1 puff INHALATION DAILY 08/24/21 10/20/21 62.5 mcg-vilant 25 mcg inhalat.powder (Trelegy Ellipta) folic acid 1 mg tablet 1 tab PO DAILY 08/24/21 10/20/21 multivitamin 1 tab PO DAILY 08/24/21 10/20/21 ondansetron HCl 4 mg tablet 1 tab PO Q8H PRN 08/24/21 10/20/21 oxycodone 10 mg tablet,crush 10 mg PO DAILY 08/24/21 10/20/21 resistant,extended release 12 hr (OxyContin) oxycodone 40 mg tablet,crush 1 tab PO BID 08/24/21 10/20/21 resistant,extended release 12 hr (OxyContin) quetiapine 100 mg tablet 1 tab PO BEDTIME 08/24/21 10/20/21 sennosides 8.6 mg-docusate sodium 1 tab PO DAILY 08/24/21 10/20/21 50 mg tablet (Stimulant Laxative Plus) sertraline 100 mg tablet 1 tab PO DAILY 08/24/21 10/20/21 trazodone 100 mg tablet 2 tab PO BEDTIME PRN 08/24/21 10/20/21 Previous Rx's Medication Instructions Recorded amoxicillin 875 mg-potassium 1 tab PO BID #10 tab 10/22/21 clavulanate 125 mg tablet prednisone 20 mg tablet 40 mg PO DAILY #6 tab 10/22/21 Allergies Allergy/AdvReac Type Severity Reaction Status Date / Time hydromorphone [From Dilaudid] Allergy Intermediate hallucinati Verified 08/24/21 14:18 on Review of Systems Review of Systems: Yes Unobtainable due to mental status Constitutional: Constitutional: Denies no additional constitutional complaints Neurologic: Denies Abnormal speech present PMFSH Past Medical History Attestation statement: The following information was validated with the patient. Source: old records reviewed and nursing notes reviewed Medical History Arthritis Bronchiectasis COPD (chronic obstructive pulmonary disease) Coronary artery disease COVID-19 Depression GERD (gastroesophageal reflux disease) Hypertension Left bundle branch block Pulmonary fibrosis Social History Social History Household Members: None Housing: Apartment Do you presently have visiting nurse or other home services: Yes Patient Tobacco Use Status: Former Tobacco user Quit Date: 1991 Tobacco use type: Cigarette e-Cigarette/Vaping Use: Never Used Second Hand Smoke Exposure: No Advance Directives: Yes Advance Directives on File: Yes Advance Directives Date on File: 08/24/21 service: No Current occupational status: retired Physical Exam Vital Signs: Vital Signs: Last Vital Signs Temp 98.3 F 11/02/21 16:43 Pulse 84 11/02/21 16:43 Resp 18 11/02/21 16:43 BP 135/56 L 11/02/21 16:43 Pulse Ox 97 11/02/21 16:43 BMI result Body Mass Index 21.6 Const: General: lethargic Orientation/consciousness: lethargic Limitations: altered mental status HEENT: Head: Yes normal to inspection Ears: hearing grossly normal bilaterally General nose exam: Normal external nose present Face and sinus: Yes normal facial exam Mouth: Normal oral and palatal mucosa present Throat: Yes posterior oropharynx normal Eyes: Other: pinpoint pupils General: appearance normal, both eyes and all related structures Neck: Neck: Yes normal visual inspection Chest: Chest palpation & inspection: normal inspection of the chest Resp: Other: Diminished BS Effort & Inspection: normal respiratory effort Cardio: Rate: regular rate Rhythm: regular rhythm Peripheral pulses: Peripheral pulses 2+ throughout GI: Inspection: Yes normal to inspection Palpation (GI): Soft to palpation and nontender Auscultation: normal bowel sounds Back/Spine/Pelvis: Thoracic/Lumbar Spine: thoracic and lumbar spine normal to inspection Skin: General skin exam: no rashes or lesions noted Neuro: Other: +lethargic General: moves all extremities, no focal motor deficits, normal sensation to monofilament and Unable to assess gait Speech: No Abnormal speech present Gait exam (Neuro): Unable to assess gait Extrem: General: Yes normal to inspection Course Course Course Narrative: 71 yo male with of COPD, bronchiectasis, and pulmonary fibrosis, on home O2 3L via NC, CAD, depression, GERD, HTN here with complaints of lethargy. EMS was called by the home health nurse. No other clear history. Will check labs, EKG, chest x-ray, COVID screen. Patient has pinpoint pupils and is quite lethargic. He is on OxyContin 50 mg twice daily. Will give low-dose Narcan 1445-after Narcan patient is now alert, oriented. He is following commands and answering all questions. He has no complaints and would like to go home. He is on oxycontin 50mg AM, 40mg HS. He has a nurse that comes to his house twice a day to given his medications from a lock box. He denies any additional substance use. Will d/w his home care nurse. Patient being weaned down to baseline oxygen. 1500-I spoke to the patient's nurse YUNIOR to sees him twice daily for his medication doses. She tells me the patient has a history of hoarding his pain medications in the past. She is unsure if he has done this. I did explain that he required Narcan today I also will call his primary care office and leave a message about his visit here today. [id number]-Unable to contact PCP at this time. Patient continues to remain A&Ox4. Patient has been alert and oriented x3 x 3 hrs after being given narcan. Patient on baseline oxugen with no increased work of breathing or respiratory distress. His labs are I baseline. His chest x-ray shows no acute finding. He feels well with no complaints. We did tested for flu and COVID and these were negative. Likely patient was more lethargic from baseline and due to the overuse of his opiates. Will discharge home with PCP follow-up. Reviewed worrisome signs and symptoms of when to return to the emergency department. Comfortable discharge home. MDM - Weakness Medical Records Attestation: I reviewed the patient's medical records. Lab Data Attestation: I reviewed the patient's lab results. Result diagrams: 11/02/21 14:25 11/02/21 14:25 Labs: Lab Results 11/02/21 11/02/21 11/02/21 Range/Units 14:25 14:25 14:25 WBC 8.1 (4.8-10.8) X10*3/uL RBC 3.75 L (4.60-5.80) X10*6/uL Hgb 10.7 L (14.0-18.0) g/dl Hct 34.8 L (42.0-52.0) % MCV 92.8 (80.0-98.0) fL MCH 28.5 (27.0-33.0) pg MCHC 30.7 L (31.0-36.0) g/dl RDW 16.4 H (11.0-16.0) % Plt Count 245 (160-400) X10*3/uL MPV 10.9 (9.4-12.4) fL Immature Gran % (Auto) 0.5 H (0.0-0.4) % Neut % (Auto) 76.9 H (45-73) % Lymph % (Auto) 9.6 L (20-40) % [place] % (Auto) 7.8 (2-11) % Eos % (Auto) 5.0 H (0-4) % Baso % (Auto) 0.2 (0-2) % Lymph # (Auto) 0.8 L (1.2-4.9) X10*3/uL [place] # (Auto) 0.6 (0.1-1.2) X10*3/uL Eos # (Auto) 0.4 (0.0-0.4) X10*3/uL Baso # (Auto) 0.0 (0.0-0.2) X10*3/uL Abs Immat Gran (auto) 0.04 H (0.00-0.03) X10*3/uL Absolute Neuts (auto) 6.2 (2.0-8.3) x10*3/uL Absolute Nucleated RBC 0.000 (0.0-0.012) X10*3/uL Nucleated RBC % (auto) 0.0 (0.0-0.2) /100WBC PT 12.4 (9.9-13.0) SEC INR 1.1 (0.9-1.1) VBG pH (7.32-7.43) VBG pCO2 mmHg VBG pO2 mmHg VBG HCO3 (22-26) mmol/L VBG O2 Saturation % VBG Base Excess mmol/L Sodium 143 (135-145) mmol/L Potassium 4.0 (3.3-5.1) mmol/L Chloride 99 (96-108) mmol/L Carbon Dioxide 35 H (22-29) mmol/L Anion Gap 13 (12-20) BUN 11 (9-16) mg/dL Creatinine 0.86 (0.5-1.4) mg/dL Estim Creat Clear Calc 75.1 Estimated GFR > 60 Random Glucose 100 (60-115) mg/dL Lactic Acid (0.5-2.0) mmol/L Calcium 9.0 (8.4-10.2) mg/dL Magnesium 2.3 (1.6-2.6) mg/dL Total Bilirubin 0.7 (0.0-1.0) mg/dL Direct Bilirubin 0.3 (0.0-0.5) mg/dL AST 20 (5-37) U/L ALT 18 (0-40) U/L Alkaline Phosphatase 69 (39-117) U/L Troponin I High Sens (<3.5-35.0) ng/L B-Natriuretic Peptide (<100) pg/mL Total Protein 6.5 (6.5-8.0) g/dL Albumin 3.4 L (3.5-5.0) g/dL COVID-19 (PRIYA) (Negative) COVID-19 Clin Com Influenza Type A (DAVIS) (Negative) Influenza Type B (DAVIS) (Negative) Influenza A & B Note 11/02/21 11/02/21 11/02/21 Range/Units 14:25 14:26 14:32 WBC (4.8-10.8) X10*3/uL RBC (4.60-5.80) X10*6/uL Hgb (14.0-18.0) g/dl Hct (42.0-52.0) % MCV (80.0-98.0) fL MCH (27.0-33.0) pg MCHC (31.0-36.0) g/dl RDW (11.0-16.0) % Plt Count (160-400) X10*3/uL MPV (9.4-12.4) fL Immature Gran % (Auto) (0.0-0.4) % Neut % (Auto) (45-73) % Lymph % (Auto) (20-40) % [place] % (Auto) (2-11) % Eos % (Auto) (0-4) % Baso % (Auto) (0-2) % Lymph # (Auto) (1.2-4.9) X10*3/uL [place] # (Auto) (0.1-1.2) X10*3/uL Eos # (Auto) (0.0-0.4) X10*3/uL Baso # (Auto) (0.0-0.2) X10*3/uL Abs Immat Gran (auto) (0.00-0.03) X10*3/uL Absolute Neuts (auto) (2.0-8.3) x10*3/uL Absolute Nucleated RBC (0.0-0.012) X10*3/uL Nucleated RBC % (auto) (0.0-0.2) /100WBC PT (9.9-13.0) SEC INR (0.9-1.1) VBG pH 7.34 (7.32-7.43) VBG pCO2 69 mmHg VBG pO2 45 mmHg VBG HCO3 38 H (22-26) mmol/L VBG O2 Saturation 55.0 % VBG Base Excess 9.8 mmol/L Sodium (135-145) mmol/L Potassium (3.3-5.1) mmol/L Chloride (96-108) mmol/L Carbon Dioxide (22-29) mmol/L Anion Gap (12-20) BUN (9-16) mg/dL Creatinine (0.5-1.4) mg/dL Estim Creat Clear Calc Estimated GFR Random Glucose (60-115) mg/dL Lactic Acid 0.8 (0.5-2.0) mmol/L Calcium (8.4-10.2) mg/dL Magnesium (1.6-2.6) mg/dL Total Bilirubin (0.0-1.0) mg/dL Direct Bilirubin (0.0-0.5) mg/dL AST (5-37) U/L ALT (0-40) U/L Alkaline Phosphatase (39-117) U/L Troponin I High Sens 7.3 D (<3.5-35.0) ng/L B-Natriuretic Peptide 23 (<100) pg/mL Total Protein (6.5-8.0) g/dL Albumin (3.5-5.0) g/dL COVID-19 (PRIYA) (Negative) COVID-19 Clin Com Influenza Type A (DAVIS) (Negative) Influenza Type B (DAVIS) (Negative) Influenza A & B Note 11/02/21 11/02/21 Range/Units 16:37 16:37 WBC (4.8-10.8) X10*3/uL RBC (4.60-5.80) X10*6/uL Hgb (14.0-18.0) g/dl Hct (42.0-52.0) % MCV (80.0-98.0) fL MCH (27.0-33.0) pg MCHC (31.0-36.0) g/dl RDW (11.0-16.0) % Plt Count (160-400) X10*3/uL MPV (9.4-12.4) fL Immature Gran % (Auto) (0.0-0.4) % Neut % (Auto) (45-73) % Lymph % (Auto) (20-40) % [place] % (Auto) (2-11) % Eos % (Auto) (0-4) % Baso % (Auto) (0-2) % Lymph # (Auto) (1.2-4.9) X10*3/uL [place] # (Auto) (0.1-1.2) X10*3/uL Eos # (Auto) (0.0-0.4) X10*3/uL Baso # (Auto) (0.0-0.2) X10*3/uL Abs Immat Gran (auto) (0.00-0.03) X10*3/uL Absolute Neuts (auto) (2.0-8.3) x10*3/uL Absolute Nucleated RBC (0.0-0.012) X10*3/uL Nucleated RBC % (auto) (0.0-0.2) /100WBC PT (9.9-13.0) SEC INR (0.9-1.1) VBG pH (7.32-7.43) VBG pCO2 mmHg VBG pO2 mmHg VBG HCO3 (22-26) mmol/L VBG O2 Saturation % VBG Base Excess mmol/L Sodium (135-145) mmol/L Potassium (3.3-5.1) mmol/L Chloride (96-108) mmol/L Carbon Dioxide (22-29) mmol/L Anion Gap (12-20) BUN (9-16) mg/dL Creatinine (0.5-1.4) mg/dL Estim Creat Clear Calc Estimated GFR Random Glucose (60-115) mg/dL Lactic Acid (0.5-2.0) mmol/L Calcium (8.4-10.2) mg/dL Magnesium (1.6-2.6) mg/dL Total Bilirubin (0.0-1.0) mg/dL Direct Bilirubin (0.0-0.5) mg/dL AST (5-37) U/L ALT (0-40) U/L Alkaline Phosphatase (39-117) U/L Troponin I High Sens (<3.5-35.0) ng/L B-Natriuretic Peptide (<100) pg/mL Total Protein (6.5-8.0) g/dL Albumin (3.5-5.0) g/dL COVID-19 (PRIYA) Negative (Negative) COVID-19 Clin Com See Note Influenza Type A (DAVIS) Negative (Negative) Influenza Type B (DAVIS) Negative (Negative) Influenza A & B Note See Note Imaging Data Chest x-ray: Attestation: I personally reviewed and interpreted this imaging study as follows: Radiologist's impression: FINDINGS: Redemonstration of volume loss in the right upper lobe with shift of midline structures toward the right in the superior mediastinum. Chronic increased interstitial lung markings in lungs bilateral similar prior exam of 08/24/2021. No acute airspace disease. No pleural effusion. No pneumothorax. Heart size is normal. Cardiac and mediastinal contours unchanged. Multilevel degenerative spondylosis spine. XR/XR chest 1V IMPRESSION: Chronic changes of volume loss right upper lobe and chronic increased interstitial lung markings. No acute abnormality of chest. ? ECG Data Attestation: I personally reviewed and interpreted this ECG as follows: ECG interpretation date: 11/02/21 ECG interpretation time: 14:28 Interpretation: Normal sinus rhythm with a first-degree AV block with a rate of 74, normal MA, normal QRS Discharge Plan Discharge Clinical Impression: Lethargic, Adv eff opiates Patient Disposition: Home, Self-Care Instructions: Narcotic Safety (ED) Additional Instructions: You required Narcan because you are very lethargic Your doses of narcotic pain medication may be too high for you You should discuss this with your primary care doctor Take your medications as prescribed Prescriptions: No Action prednisone 20 mg tablet 40 mg PO DAILY Qty: 6 0RF amoxicillin-pot clavulanate 875-125 mg tablet 1 tab PO BID Qty: 10 0RF multivitamin Tablet 1 tab PO DAILY 0RF atorvastatin 80 mg tablet 1 tab PO DAILY 0RF albuterol sulfate 2.5 mg /3 mL (0.083 %) solution for nebulization 2.5 mg inhalation QID PRN (Reason: Wheezing) 0RF ondansetron HCl 4 mg tablet 1 tab PO Q8H PRN (Reason: Nausea) 0RF famotidine 40 mg tablet 1 tab PO DAILY 0RF clonazepam 0.5 mg tablet 1 tab PO TID PRN (Reason: Anxiety) 0RF sennosides-docusate sodium [Stimulant Laxative Plus] 8.6-50 mg tablet 1 tab PO DAILY 0RF sertraline 100 mg tablet 1 tab PO DAILY 0RF aspirin 81 mg tablet,delayed release (DR/EC) 1 tab PO DAILY 0RF quetiapine 100 mg tablet 1 tab PO BEDTIME 0RF folic acid 1 mg tablet 1 tab PO DAILY 0RF albuterol sulfate 90 mcg/actuation HFA aerosol inhaler 90 mcg inhalation Q4H 0RF finasteride 5 mg tablet 1 tab PO DAILY 0RF oxycodone [OxyContin] 10 mg tablet,oral only,ext.rel.12 hr 10 mg PO DAILY 0RF oxycodone [OxyContin] 40 mg tablet,oral only,ext.rel.12 hr 1 tab PO BID 0RF Trelegy Ellipta 100-62.5-25 mcg blister with device 1 puff inhalation DAILY 0RF trazodone 100 mg tablet 2 tab PO BEDTIME PRN (Reason: Insomnia) 0RF cholecalciferol (vitamin D3) 25 mcg (1,000 unit) Tablet 25 mcg PO DAILY 0RF Referrals: Sugar Peraza MD [Primary Care Provider] - 5 days
[2021-11-02 14:35] LABS: Basophils Percent Auto 0.2 % (0-2); Eosinophils Absolute Auto 0.4 X10*3/uL (0.0-0.4); Hematocrit 34.8 % (42.0-52.0); Hemoglobin 10.7 g/dl (14.0-18.0); Imm Gran Abs Auto 0.04 X10*3/uL (0.00-0.03); Imm Gran Pct Auto 0.5 % (0.0-0.4); Lymphocytes Absolute Auto 0.8 X10*3/uL (1.2-4.9); Lymphocytes Percent Auto 9.6 % (20-40); MANUAL DIFF FLAG NO; Mean Corpuscular HGB Conc 30.7 g/dl (31.0-36.0); Mean Corpuscular Hemoglobin 28.5 pg (27.0-33.0); Mean Corpuscular Volume 92.8 fL (80.0-98.0); Mean Platelet Volume 10.9 fL (9.4-12.4); Monocytes Absolute Auto 0.6 X10*3/uL (0.1-1.2); Monocytes Percent Auto 7.8 % (2-11); Neutrophils Absolute Auto 6.2 x10*3/uL (2.0-8.3); Neutrophils Percent Auto 76.9 % (45-73); Platelet Count 245 X10*3/uL (160-400); Red Blood Count 3.75 X10*6/uL (4.60-5.80); Red Cell Distribution Width 16.4 % (11.0-16.0); White Blood Count 8.1 X10*3/uL (4.8-10.8)
[2021-11-02 14:41] LABS: INTERNATIONAL NORM RATIO 1.1 (0.9-1.1); Prothrombin Time 12.4 SEC (9.9-13.0)
[2021-11-02] MEDS: Naloxone HCl 0.4 MG/ML VIAL IVPUSH (14:41)
[2021-11-02 14:43] VITALS: O2SAT 96
[2021-11-02 14:48] LABS: Lactic Acid 0.8 mmol/L (0.5-2.0)
[2021-11-02 14:54] LABS: Alanine Aminotransferase 18 U/L (0-40); Albumin Level 3.4 g/dL (3.5-5.0); Alkaline Phosphatase 69 U/L (39-117); Anion Gap 13 (12-20); Aspartate Amino Transferase 20 U/L (5-37); Bilirubin Direct 0.3 mg/dL (0.0-0.5); Bilirubin Total 0.7 mg/dL (0.0-1.0); Blood Urea Nitrogen 11 mg/dL (9-16); Carbon Dioxide 35 mmol/L (22-29); Chloride 99 mmol/L (96-108); Creatinine Clr Calc Pharmacy 75.1; Estimated Glomerular Filt Rate > 60; Glucose Random 100 mg/dL (60-115); Magnesium 2.3 mg/dL (1.6-2.6); Sodium 143 mmol/L (135-145); Total Protein 6.5 g/dL (6.5-8.0)
[2021-11-02 14:59] LABS: B Type Natriuretic Peptide 23 pg/mL (<100); Troponin-I High Sensitivity 7.3 ng/L (<3.5-35.0)
[2021-11-02 15:03] LABS: VBG Base Excess 9.8 mmol/L; VBG HCO3 38 mmol/L (22-26); VBG pCO2 69 mmHg; VBG pH 7.34 (7.32-7.43); VBG pO2 45 mmHg
[2021-11-02 15:05] LABS: Venous Blood Gas Refer to POC result
[2021-11-02 16:43] VITALS: BP 135/56; PULSE 84; RESP 18; TEMP 36.8; O2SAT 97
[2021-11-02 16:59] LABS: Influenza A Negative (Negative); Influenza B2 Negative (Negative)
[2021-11-02 17:04] LABS: COVID-19 Test Negative (Negative)
--- NOTE | 2021-11-02 17:15 | PC.NURSE ---
[employer] CALLED FOR UPDATE ON PTS CARE PLAN AND DISCHARGE PLAN
--- NOTE | 2021-11-02 17:51 | PC.NURSE ---
@17:45 CALL PLACED TO [facility] FOR TRANSPORT HOME WITH OXYGEN @ 3LPM FOR EMPHYSEMA AND COPD MAGAN ANSWERS, TAKES PT INFO AND GIVES A 20:00 ETA FOR [employer]
--- NOTE | 2021-11-02 21:28 | PC.NURSE ---
Call facility to notify them pt returning. Spoke to Tish. Nursing will not able to get med until morning per facility.
== END 2021-11-02 21:36 | disposition home or self-care (01) ==
PROVIDERS: Nurse Practitioner Family; Emergency Provider Emergency Medicine; PCP Internal Medicine Geriatric Medicine
DX: R53.83 Other fatigue (principal); R53.1 Weakness; T40.2X5A Adverse effect of other opioids, initial encounter; Y92.019 Unspecified place in single-family (private) house as the place of occurrence of the external cause; Z20.822 Contact with and (suspected) exposure to COVID-19; I10 Essential (primary) hypertension; J44.9 Chronic obstructive pulmonary disease, unspecified; Z99.81 Dependence on supplemental oxygen; Z79.82 Long term (current) use of aspirin; Z79.02 Long term (current) use of antithrombotics/antiplatelets; Z79.899 Other long term (current) drug therapy
CPT/HCPCS: 36415; 71045; 80048; 80076; 82803; 83605; 83735; 83880; 84484; 85025; 85610; 87040; 87502; 87635; 93005; 96374; 99284